=== PATIENT | male | born 1965 | race Hispanic/Latino ===

== ENCOUNTER 2022-03-04 15:43 | Inpatient (IN) | payer MEDICAID ==
[2022-03-05 07:20] LABS: Basophils # (Auto) 0.1 K/mm3 (0.0-0.1); Basophils % (Auto) 0.7 % (0.0-1.8); Eosinophils # (Auto) 0.3 K/mm3 (0.0-0.4); Eosinophils % (Auto) 3.5 % (0.0-4.3); Hematocrit 45.1 % (35.5-45.6); Hemoglobin 14.8 gm/dl (11.8-15.2); Lymphocytes # (Auto) 3.2 K/mm3 (1.2-5.4); Lymphocytes % (Auto) 32.8 % (13.4-35.0); Mean Corpuscular HGB Conc 33 % (32-34); Mean Corpuscular Volume 86 fl (84-94); Monocytes # (Auto) 0.9 K/mm3 (0.0-0.8); Monocytes % (Auto) 9.5 % (0.0-7.3); Platelet Count 283 K/mm3 (140-440); Red Blood Count 5.23 M/mm3 (3.65-5.03); Red Cell Distribution Width 16.7 % (13.2-15.2)
[2022-03-05 07:59] LABS: Alanine Aminotransferase 39 units/L (7-56); Albumin 4.4 g/dL (3.9-5); BUN/Creatinine Ratio 17; Blood Urea Nitrogen 15 mg/dL (9-20); Calcium 9.2 mg/dL (8.4-10.2); Chol/HDL Ratio 3.05 %; HDL Cholesterol 51 mg/dL (40-59); Hemolysis Index 4; LDL Cholesterol,Direct 74 mg/dL (50-130)
--- NOTE | 2022-03-05 09:15 | History and Physical Report ---
GP History & Physical - History of Present Illness Date of admission: 03/05/22 Date of Examination: 03/05/22 Reason for Admission: Danger to self, Danger to others, Failure of Outpatient Treatment Chief Complaint: suicidal ideation History of Present Illness: The patient is a 56 year old male with history of depression and anxiety who was admitted for suicidal ideation. The patient is calm, alert and oriented x3. He reports ongoing depression for the past 3 to 4 months. The patient reports that " I felt like I was going to do something stupid." He reports recent stressor such as " bills." He endorses excessive anxiety. The patient denies any current suicidal/homicidal ideation and denies hallucinations. PAST PSYCHIATRIC HISTORY Diagnoses: Depression, Anxiety Suicide attempts or Self-harm behavior: Yes Prior psychiatric hospitalizations: Yes Substance Abuse history: Denies Previous psychiatric medications tried: Unable to recall Outpatient treatment: Unknown PAST MEDICAL HISTORY:Back/Neck surgery, DM, COPD, CABG Family Psychiatric History: None reported or documented SOCIAL HISTORY Marital Status: Single Living Arrangements: Lives with mother and brother Employment Status: Disabled Access to guns/weapons: Denies Education: 9th grade History of Abuse: Denies Legal History: Denies REVIEW OF SYSTEMS Constitutional: Negative for weight loss ENT: Negative for stridor Respiratory: Negative for cough or hemoptysis All other systems reviewed and are negative MENTAL STATUS EXAMINATION General Appearance and Behavior: Age appropriate, good hygiene, wearing appropriate clothes, fair eye contact, calm, cooperative and polite Cooperation: Cooperative Psychomotor Behavior: Psychomotor normal Mood: Depressed/anxious Affect and affective range: congruent with stated mood Thought Process: Goal directed Thought Content: Reality oriented Speech: normal tone and pace Suicidal Ideation: Denies Homicidal Ideation: Denies Hallucinations: Denies Delusions: None elicited Impulse Control: Limited Insight and Judgment: Limited insight and judgment Memory: Limited Attention: attentive Orientation: Alert, oriented Assessment and Plan Major depressive disorder Treatment Plan Patient admitted for inpatient psychiatric evaluation, medication adjustment and close monitoring The patient's behavior, mood, sleep and appetite will be closely monitored. Patient enrolled in individual and group therapeutic sessions and encouraged to attend. Patient provided with a safe and structured environment. Patient's physical health needs will be addressed by the Hospitalist. Hospitalist Consulted Labs including CBC, CMP, Lipid profile and Hemoglobin A1C levels ordered for baseline reference Social Assessment will be completed and the Diamond Cutter will work with patient and family to ensure a suitable and safe disposition Medication adjustment will be made as clinically indicated Continue home meds Usual Wellness [employer]/Preservation: - Start Trazodone 50 mg po QHS & 50 mg po QHS PRN between 10 PM & 2 AM for insomnia - Start Melatonin 5 mg po QHS to promote circadian rhythm The patient agreed on the treatment plan, understood the risk, benefit, alternative treatment, potential consequence of no treatment, and gave informed consent. Estimated days: 7 Post hospital care: primary care provider, psychiatric provider Case staffed with Dr. Mcbride Legal Status: Voluntary Reaction to Hospitalization: Accepting Medications and Allergies Allergies Allergy/AdvReac Type Severity Reaction Status Date / Time No Known Allergies Allergy Unverified 03/04/22 17:57 Home Medications Medication Instructions Recorded Confirmed Last Taken Type AtorvaSTATin [Lipitor] 40 mg PO QHS 03/05/22 03/05/22 Unknown History Clopidogrel [Plavix] 75 mg PO QDAY 03/05/22 03/05/22 Unknown History Cyclobenzaprine [Flexeril] 10 mg PO HS 03/05/22 03/05/22 Unknown History Furosemide [Lasix] 40 mg PO DAILY 03/05/22 03/05/22 Unknown History Glimepiride [Amaryl] 4 mg PO QAM 03/05/22 03/05/22 Unknown History HYDROcodone/APAP 10-325 [[place] 1 each PO TID 03/05/22 03/05/22 Unknown History 10/325] Metformin HCl [metFORMIN] 1,000 mg PO BID 03/05/22 03/05/22 Unknown History Metoprolol Xl [Metoprolol 25 mg PO QDAY 03/05/22 03/05/22 Unknown History SUCCINATE ER TAB] Omeprazole 40 mg PO DAILY 03/05/22 03/05/22 Unknown History Pregabalin [Lyrica] 100 mg PO DAILY 03/05/22 03/05/22 Unknown History carvediloL [Coreg] 6.25 mg PO BID 03/05/22 03/05/22 Unknown History lisinopriL [Lisinopril] 10 mg PO DAILY 03/05/22 03/05/22 Unknown History traZODone [Desyrel] 50 mg PO HS 03/05/22 03/05/22 Unknown History Active Meds: Active Medications Nicotine (Nicotine 21 Mg/24 Hr Patch) 21 mg TD QDAY [facility] Results - Results Labs/Vitals: Laboratory Last Values WBC 9.8 K/mm3 (4.5-11.0) 03/05/22 06:44 RBC 5.23 M/mm3 (3.65-5.03) H 03/05/22 06:44 Hgb 14.8 gm/dl (11.8-15.2) 03/05/22 06:44 Hct 45.1 % (35.5-45.6) 03/05/22 06:44 MCV 86 fl (84-94) 03/05/22 06:44 MCH 28 pg (28-32) 03/05/22 06:44 MCHC 33 % (32-34) 03/05/22 06:44 RDW 16.7 % (13.2-15.2) H 03/05/22 06:44 Plt Count 283 K/mm3 (140-440) 03/05/22 06:44 Lymph % (Auto) 32.8 % (13.4-35.0) 03/05/22 06:44 [place] % (Auto) 9.5 % (0.0-7.3) H 03/05/22 06:44 Eos % (Auto) 3.5 % (0.0-4.3) 03/05/22 06:44 Baso % (Auto) 0.7 % (0.0-1.8) 03/05/22 06:44 Lymph # (Auto) 3.2 K/mm3 (1.2-5.4) 03/05/22 06:44 [place] # (Auto) 0.9 K/mm3 (0.0-0.8) H 03/05/22 06:44 Eos # (Auto) 0.3 K/mm3 (0.0-0.4) 03/05/22 06:44 Baso # (Auto) 0.1 K/mm3 (0.0-0.1) 03/05/22 06:44 Seg Neutrophils % 53.5 % (40.0-70.0) 03/05/22 06:44 Seg Neutrophils # 5.3 K/mm3 (1.8-7.7) 03/05/22 06:44 Sodium 132 mmol/L (137-145) L 03/05/22 06:44 Potassium 4.4 mmol/L (3.6-5.0) 03/05/22 06:44 Chloride 92.2 mmol/L (98-107) L 03/05/22 06:44 Carbon Dioxide 29 mmol/L (22-30) 03/05/22 06:44 Anion Gap 15 mmol/L 03/05/22 06:44 BUN 15 mg/dL (9-20) 03/05/22 06:44 Creatinine 0.9 mg/dL (0.8-1.3) 03/05/22 06:44 Estimated GFR > 60 ml/min 03/05/22 06:44 BUN/Creatinine Ratio 17 % 03/05/22 06:44 Glucose 274 mg/dL (75-100) H 03/05/22 06:44 POC Glucose 266 mg/dL (70-105) H 03/05/22 07:28 Hemoglobin A1c 8.2 % (4-6) H 03/05/22 06:44 Calcium 9.2 mg/dL (8.4-10.2) 03/05/22 06:44 Total Bilirubin 0.40 mg/dL (0.1-1.2) 03/05/22 06:44 AST 26 units/L (5-40) 03/05/22 06:44 ALT 39 units/L (7-56) 03/05/22 06:44 Alkaline Phosphatase 195 units/L (35-129) H 03/05/22 06:44 Total Protein 7.2 g/dL (6.3-8.2) 03/05/22 06:44 Albumin 4.4 g/dL (3.9-5) 03/05/22 06:44 Albumin/Globulin Ratio 1.6 % 03/05/22 06:44 Triglycerides 327 mg/dL (2-149) H 03/05/22 06:44 Cholesterol 156 mg/dL (50-199) 03/05/22 06:44 LDL Cholesterol Direct 74 mg/dL (50-130) 03/05/22 06:44 HDL Cholesterol 51 mg/dL (40-59) 03/05/22 06:44 Cholesterol/HDL Ratio 3.05 % 03/05/22 06:44 TSH 2.460 mlU/mL (0.270-4.200) 03/05/22 06:44 Physician Certification - Certification Statement Physician Certification Statement: This is an acknowledgement statement that KIMBER CROCKETT is a 56 year old M who requires inpatient psychiatric admission for treatment which could reasonably be expected to improve the patient's condition for Estimated period of time patient will need to remain in the hospital: [ ] Plan for post-hospital care: [ ]
[2022-03-05] MEDS ORDERED: NON-FORMULARY EACH (Pregabalin [Lyrica] 100 MG Capsule) PO SCH (10:00)
[2022-03-05] MEDS ORDERED: METOPROLOL SUCCINATE XL 25 MG TAB PO SCH (10:00)
[2022-03-05] MEDS ORDERED: NON-FORMULARY EACH (Omeprazole [Omeprazole] 40 MG Capsule.Dr) PO SCH (10:00)
[2022-03-05] MEDS ORDERED: clonazePAM 0.5 MG TAB PO PRN (10:00)
[2022-03-05] MEDS: PREGABALIN 50 MG CAP PO SCH (10:36)
[2022-03-05] MEDS: FUROSEMIDE 40 MG TAB PO SCH (10:36)
[2022-03-05] MEDS: PANTOPRAZOLE 40 MG TAB PO SCH (10:36)
[2022-03-05] MEDS: DULoxetine 30 MG CAP PO SCH (10:36)
[2022-03-05] MEDS: NICOTINE 21 MG/24 HR PATCH TD SCH (10:36)
[2022-03-05] MEDS: FLUoxetine 20 MG CAP PO SCH (10:36)
[2022-03-05] MEDS: CLOPIDOGREL 75 MG TAB PO SCH (10:36)
[2022-03-05] MEDS: carvediloL 6.25 MG TAB PO SCH ×2 (10:36→21:37)
[2022-03-05] MEDS: GLIMEPIRIDE 4 MG TAB PO SCH (10:53)
[2022-03-05] MEDS ORDERED: hydrOXYzine PAMOATE 25 MG CAP PO PRN (13:30)
--- NOTE | 2022-03-05 16:11 | Consultation ---
History of Present Illness - Reason for Consult Consult date: 03/05/22 Medical management - History of Present Illness Patient is a 56-year-old male past medical history of depression, anxiety, CAD status post CABG, [id number] type 2 diabetes mellitus, GERD, hypertension, and diabetic neuropathy who was admitted for suicidal ideation. The patient describes having ongoing depression for approximately 3-4 months with recent stressors such as "bills" and financial difficulties. Patient denies any current suicidal/homicidal ideation as well as hallucinations. The hospitalist service was consulted for medical management. Past History Past Medical History: CAD (Status post CABG), COPD, diabetes, hypertension, hyperlipidemia, other (#Tobacco dependence#Tobacco/Smoking cessation counseling- Counseled patient about the importance of smoking cessation and the possible sequelae as a result of continued tobacco consumption. The patient expresses understanding. -Time: +15 mins) Past Surgical History: CABG Social history: single, lives with family, smoking, full code Family history: no significant family history Medications and Allergies Allergies Allergy/AdvReac Type Severity Reaction Status Date / Time No Known Allergies Allergy Unverified 03/04/22 17:57 Home Medications Medication Instructions Recorded Confirmed Last Taken Type AtorvaSTATin [Lipitor] 40 mg PO QHS 03/05/22 03/05/22 Unknown History Clopidogrel [Plavix] 75 mg PO QDAY 03/05/22 03/05/22 Unknown History Cyclobenzaprine [Flexeril] 10 mg PO HS 03/05/22 03/05/22 Unknown History Furosemide [Lasix] 40 mg PO DAILY 03/05/22 03/05/22 Unknown History Glimepiride [Amaryl] 4 mg PO QAM 03/05/22 03/05/22 Unknown History HYDROcodone/APAP 10-325 [[place] 1 each PO TID 03/05/22 03/05/22 Unknown History 10/325] Metformin HCl [metFORMIN] 1,000 mg PO BID 03/05/22 03/05/22 Unknown History Metoprolol Xl [Metoprolol 25 mg PO QDAY 03/05/22 03/05/22 Unknown History SUCCINATE ER TAB] Omeprazole 40 mg PO DAILY 03/05/22 03/05/22 Unknown History Pregabalin [Lyrica] 100 mg PO DAILY 03/05/22 03/05/22 Unknown History carvediloL [Coreg] 6.25 mg PO BID 03/05/22 03/05/22 Unknown History lisinopriL [Lisinopril] 10 mg PO DAILY 03/05/22 03/05/22 Unknown History traZODone [Desyrel] 50 mg PO HS 03/05/22 03/05/22 Unknown History Active Meds: Active Medications Atorvastatin Calcium (Atorvastatin 40 Mg Tab) 40 mg PO QHS [facility] Carvedilol (Carvedilol 6.25 Mg Tab) 6.25 mg PO BID [facility] Last Admin: 03/05/22 10:36 Dose: 6.25 mg Clonazepam (Clonazepam 0.5 Mg Tab) 0.5 mg PO BID PRN PRN Reason: Anxiety Clopidogrel Bisulfate (Clopidogrel 75 Mg Tab) 75 mg PO QDAY [facility] Last Admin: 03/05/22 10:36 Dose: 75 mg Cyclobenzaprine HCl (Cyclobenzaprine 10 Mg Tab) 10 mg PO [facility] Duloxetine HCl (Duloxetine 30 Mg Cap) 60 mg PO QDAY [facility] Last Admin: 03/05/22 10:36 Dose: 60 mg Fluoxetine HCl (Fluoxetine 20 Mg Cap) 40 mg PO QDAY [facility] Last Admin: 03/05/22 10:36 Dose: 40 mg Furosemide (Furosemide 40 Mg Tab) 40 mg PO DAILY [facility] Last Admin: 03/05/22 10:36 Dose: 40 mg Glimepiride (Glimepiride 4 Mg Tab) 4 mg PO QAMDIAB [facility] Last Admin: 03/05/22 10:53 Dose: 4 mg Hydroxyzine Pamoate (Hydroxyzine Pamoate 25 Mg Cap) 25 mg PO Q6H PRN PRN Reason: Anxiety Metoprolol Succinate (Metoprolol Succinate Xl 25 Mg Tab) 25 mg PO QDAY [facility] Nicotine (Nicotine 21 Mg/24 Hr Patch) 21 mg TD QDAY [facility] Last Admin: 03/05/22 10:36 Dose: 21 mg Pantoprazole Sodium (Pantoprazole 40 Mg Tab) 40 mg PO QDAC [facility] Last Admin: 03/05/22 10:36 Dose: 40 mg Pregabalin (Pregabalin 50 Mg Cap) 100 mg PO QDAY [facility] Last Admin: 03/05/22 10:36 Dose: 100 mg Trazodone HCl (Trazodone 50 Mg Tab) 50 mg PO [facility] Review of Systems All systems: negative Exam - Constitutional Vitals: Temp Pulse Resp BP Pulse Ox 97.4 F L 90 18 139/80 96 03/05/22 08:40 03/05/22 10:36 03/05/22 08:40 03/05/22 10:36 03/05/22 08:40 General appearance: Present: no acute distress, well-nourished, obese - EENT Eyes: Present: PERRL, EOM intact ENT: hearing intact, clear oral mucosa - Neck Neck: Present: supple, normal ROM - Respiratory Respiratory effort: normal Respiratory: bilateral: CTA - Cardiovascular Rhythm: regular Heart Sounds: Present: S1 & S2 - Extremities Extremities: no ischemia, pulses intact, pulses symmetrical, No edema, normal temperature, normal color Peripheral Pulses: within normal limits - Abdominal General gastrointestinal: Present: soft, non-tender, non-distended, normal bowel sounds Male genitourinary: Present: deferred - Rectal Rectal Exam: deferred - Integumentary Integumentary: Present: clear, warm, dry - Musculoskeletal Musculoskeletal: strength equal bilaterally - Psychiatric Psychiatric: appropriate mood/affect, cooperative, depressed - Neurologic Neurologic: CNII-XII intact - Allied Health Allied health notes reviewed: nursing Results - Labs CBC & Chem 7: 03/05/22 06:44 03/05/22 06:44 Labs: Abnormal lab results 03/05/22 03/05/22 03/05/22 Range/Units 06:44 06:44 06:44 RBC 5.23 H (3.65-5.03) M/mm3 RDW 16.7 H (13.2-15.2) % [place] % (Auto) 9.5 H (0.0-7.3) % [place] # (Auto) 0.9 H (0.0-0.8) K/mm3 Sodium 132 L (137-145) mmol/L Chloride 92.2 L (98-107) mmol/L Glucose 274 H (75-100) mg/dL POC Glucose (70-105) mg/dL Hemoglobin A1c 8.2 H (4-6) % Alkaline Phosphatase 195 H (35-129) units/L Triglycerides 327 H (2-149) mg/dL 03/05/22 03/05/22 Range/Units 07:28 11:08 RBC (3.65-5.03) M/mm3 RDW (13.2-15.2) % [place] % (Auto) (0.0-7.3) % [place] # (Auto) (0.0-0.8) K/mm3 Sodium (137-145) mmol/L Chloride (98-107) mmol/L Glucose (75-100) mg/dL POC Glucose 266 H 270 H (70-105) mg/dL Hemoglobin A1c (4-6) % Alkaline Phosphatase (35-129) units/L Triglycerides (2-149) mg/dL Assessment and Plan #Depression #Anxiety Management per primary #Hyponatremia Sodium 132 Continue to monitor #Elevated transaminases Alkaline phosphatase 195 Continue to monitor #CAD status post CABG #Hyperlipidemia #Hypertension - home medications: Lipitor 40 mg daily, Plavix 75 mg daily, Lasix 40 mg daily, metoprolol succinate 25 mg daily, Coreg 6.25 mg twice daily, lisinopril 10 mg daily - current medications: Lipitor 40 mg daily, Plavix 75 mg daily, Lasix 40 mg daily, metoprolol succinate 25 mg daily, Coreg 6.25 mg twice daily, lisinopril 10 mg daily - SBP goal <160 and DBP goal <90 while inpatient - continue to monitor #Non-insulin dependent type II diabetes mellitus #[id number] type 2 diabetes mellitus complicated by diabetic neuropathy - hemoglobin A1c: 8.2 - home regimen: Glimepiride 4 mg every morning and metformin 1000 mg twice daily and pregabalin 100 mg daily - current regimen: Glimepiride 4 mg every morning and metformin 1000 mg twice daily and pregabalin 100 mg daily - blood glucose goal 140-180 while inpatient - continue to monitor with hypoglycemia #COPDstable Continue DuoNebs and albuterol nebs as needed #Tobacco dependence #Tobacco/Smoking cessation counseling - Counseled patient about the importance of smoking cessation and the possible sequelae as a result of continued tobacco consumption. The patient expresses understanding. Continue nicotine patch 21 mg daily -Time: +15 mins #Morbid obesity #Weight loss counseling #Exercise counseling - BMI 51.7 - Counseled patient on the importance of weight loss, incorporating exercise, and dietary changes (lean meats, fresh fruits and vegetables, and water intake). Patient expresses understanding. - Time: +15 min #Advanced care planning -Disease education conducted, care plan discussed, diagnoses discussed, prognosis discussed, and patient acknowledges understanding with care plan -Time: +30 min Thank you for this interesting consult. We will continue to monitor.
[2022-03-05] MEDS: traZODone 50 MG TAB PO SCH (21:38)
[2022-03-05] MEDS: CYCLOBENZAPRINE 10 MG TAB PO SCH (21:38)
[2022-03-06 07:01] LABS: Alanine Aminotransferase 36 units/L (7-56); Albumin 4.1 g/dL (3.9-5); BUN/Creatinine Ratio 24; Blood Urea Nitrogen 24 mg/dL (9-20); Calcium 9.2 mg/dL (8.4-10.2); Hemolysis Index 3
--- NOTE | 2022-03-06 09:52 | Progress Note ---
Subjective Date of service: 03/06/22 Subjective Comment: 03/06: The patient was seen this morning. He reports feeling better. Continues to endorse depression rating as 8/10. No hallucinations. REVIEW OF SYSTEMS Constitutional: Negative for weight loss ENT: Negative for stridor Respiratory: Negative for cough or hemoptysis All other systems reviewed and are negative MENTAL STATUS EXAMINATION General Appearance and Behavior: Age appropriate, good hygiene, wearing appropriate clothes, fair eye contact, calm, cooperative and polite Cooperation: Cooperative Psychomotor Behavior: Psychomotor normal Mood: Depressed Affect and affective range: congruent with stated mood Thought Process: Goal directed Thought Content: Reality oriented Speech: normal tone and pace Suicidal Ideation: Denies Homicidal Ideation: Denies Hallucinations: Denies Delusions: None elicited Impulse Control: Limited Insight and Judgment: Limited insight and judgment Memory: Limited Attention: attentive Orientation: Alert, oriented Assessment and Plan Major depressive disorder Treatment Plan Patient admitted for inpatient psychiatric evaluation, medication adjustment and close monitoring The patient's behavior, mood, sleep and appetite will be closely monitored. Patient enrolled in individual and group therapeutic sessions and encouraged to attend. Patient provided with a safe and structured environment. Patient's physical health needs will be addressed by the Hospitalist. Hospitalist Consulted Labs including CBC, CMP, Lipid profile and Hemoglobin A1C levels ordered for baseline reference Social Assessment will be completed and the Concert Pianist will work with patient and family to ensure a suitable and safe disposition Medication adjustment will be made as clinically indicated Continue home meds Usual Wellness [employer]/Preservation: - Start Trazodone 50 mg po QHS & 50 mg po QHS PRN between 10 PM & 2 AM for insomnia - Start Melatonin 5 mg po QHS to promote circadian rhythm The patient agreed on the treatment plan, understood the risk, benefit, alternative treatment, potential consequence of no treatment, and gave informed consent. Estimated days: 6 Post hospital care: primary care provider, psychiatric provider Case staffed with Dr. Mcbride Legal Status: Voluntary Reaction to Hospitalization: Accepting Medications and Allergies Medications and Allergies Allergies Allergy/AdvReac Type Severity Reaction Status Date / Time No Known Allergies Allergy Unverified 03/04/22 17:57 Home Medications Medication Instructions Recorded Confirmed Last Taken Type AtorvaSTATin [Lipitor] 40 mg PO QHS 03/05/22 03/05/22 Unknown History Clopidogrel [Plavix] 75 mg PO QDAY 03/05/22 03/05/22 Unknown History Cyclobenzaprine [Flexeril] 10 mg PO HS 03/05/22 03/05/22 Unknown History Furosemide [Lasix] 40 mg PO DAILY 03/05/22 03/05/22 Unknown History Glimepiride [Amaryl] 4 mg PO QAM 03/05/22 03/05/22 Unknown History HYDROcodone/APAP 10-325 [[place] 1 each PO TID 03/05/22 03/05/22 Unknown History 10/325] Metformin HCl [metFORMIN] 1,000 mg PO BID 03/05/22 03/05/22 Unknown History Metoprolol Xl [Metoprolol 25 mg PO QDAY 03/05/22 03/05/22 Unknown History SUCCINATE ER TAB] Omeprazole 40 mg PO DAILY 03/05/22 03/05/22 Unknown History Pregabalin [Lyrica] 100 mg PO DAILY 03/05/22 03/05/22 Unknown History carvediloL [Coreg] 6.25 mg PO BID 03/05/22 03/05/22 Unknown History lisinopriL [Lisinopril] 10 mg PO DAILY 03/05/22 03/05/22 Unknown History traZODone [Desyrel] 50 mg PO HS 03/05/22 03/05/22 Unknown History Active Meds: Active Medications Atorvastatin Calcium (Atorvastatin 40 Mg Tab) 40 mg PO QHS [facility] Last Admin: 03/05/22 21:38 Dose: 40 mg Carvedilol (Carvedilol 6.25 Mg Tab) 6.25 mg PO BID [facility] Last Admin: 03/05/22 21:37 Dose: 6.25 mg Clonazepam (Clonazepam 0.5 Mg Tab) 0.5 mg PO BID PRN PRN Reason: Anxiety Clopidogrel Bisulfate (Clopidogrel 75 Mg Tab) 75 mg PO QDAY [facility] Last Admin: 03/05/22 10:36 Dose: 75 mg Cyclobenzaprine HCl (Cyclobenzaprine 10 Mg Tab) 10 mg PO [facility] Last Admin: 03/05/22 21:38 Dose: 10 mg Dextrose (Dextrose 50% In Water (25gm) 50 Ml Syringe) 50 ml IV Q30MIN PRN; Protocol PRN Reason: Hypoglycemia Duloxetine HCl (Duloxetine 30 Mg Cap) 60 mg PO QDAY [facility] Last Admin: 03/05/22 10:36 Dose: 60 mg Fluoxetine HCl (Fluoxetine 20 Mg Cap) 40 mg PO QDAY [facility] Last Admin: 03/05/22 10:36 Dose: 40 mg Furosemide (Furosemide 40 Mg Tab) 40 mg PO DAILY [facility] Last Admin: 03/05/22 10:36 Dose: 40 mg Glimepiride (Glimepiride 4 Mg Tab) 4 mg PO QAMDIAB [facility] Last Admin: 03/05/22 10:53 Dose: 4 mg Hydroxyzine Pamoate (Hydroxyzine Pamoate 25 Mg Cap) 25 mg PO Q6H PRN PRN Reason: Anxiety Metformin HCl (Metformin 500 Mg Tab) 1,000 mg PO BIDDIAB [facility] Nicotine (Nicotine 21 Mg/24 Hr Patch) 21 mg TD QDAY [facility] Last Admin: 03/05/22 10:36 Dose: 21 mg Pantoprazole Sodium (Pantoprazole 40 Mg Tab) 40 mg PO QDAC [facility] Last Admin: 03/05/22 10:36 Dose: 40 mg Pregabalin (Pregabalin 50 Mg Cap) 100 mg PO QDAY [facility] Last Admin: 03/05/22 10:36 Dose: 100 mg Trazodone HCl (Trazodone 50 Mg Tab) 50 mg PO HS [facility] Last Admin: 03/05/22 21:38 Dose: 50 mg Results - Results Labs/Vitals: Laboratory Last Values WBC 9.8 K/mm3 (4.5-11.0) 03/05/22 06:44 RBC 5.23 M/mm3 (3.65-5.03) H 03/05/22 06:44 Hgb 14.8 gm/dl (11.8-15.2) 03/05/22 06:44 Hct 45.1 % (35.5-45.6) 03/05/22 06:44 MCV 86 fl (84-94) 03/05/22 06:44 MCH 28 pg (28-32) 03/05/22 06:44 MCHC 33 % (32-34) 03/05/22 06:44 RDW 16.7 % (13.2-15.2) H 03/05/22 06:44 Plt Count 283 K/mm3 (140-440) 03/05/22 06:44 Lymph % (Auto) 32.8 % (13.4-35.0) 03/05/22 06:44 [place] % (Auto) 9.5 % (0.0-7.3) H 03/05/22 06:44 Eos % (Auto) 3.5 % (0.0-4.3) 03/05/22 06:44 Baso % (Auto) 0.7 % (0.0-1.8) 03/05/22 06:44 Lymph # (Auto) 3.2 K/mm3 (1.2-5.4) 03/05/22 06:44 [place] # (Auto) 0.9 K/mm3 (0.0-0.8) H 03/05/22 06:44 Eos # (Auto) 0.3 K/mm3 (0.0-0.4) 03/05/22 06:44 Baso # (Auto) 0.1 K/mm3 (0.0-0.1) 03/05/22 06:44 Seg Neutrophils % 53.5 % (40.0-70.0) 03/05/22 06:44 Seg Neutrophils # 5.3 K/mm3 (1.8-7.7) 03/05/22 06:44 Sodium 136 mmol/L (137-145) L 03/06/22 06:08 Potassium 4.2 mmol/L (3.6-5.0) 03/06/22 06:08 Chloride 100.1 mmol/L (98-107) 03/06/22 06:08 Carbon Dioxide 25 mmol/L (22-30) 03/06/22 06:08 Anion Gap 15 mmol/L 03/06/22 06:08 BUN 24 mg/dL (9-20) H 03/06/22 06:08 Creatinine 1.0 mg/dL (0.8-1.3) 03/06/22 06:08 Estimated GFR > 60 ml/min 03/06/22 06:08 BUN/Creatinine Ratio 24 % 03/06/22 06:08 Glucose 254 mg/dL (75-100) H 03/06/22 06:08 POC Glucose 274 mg/dL (70-105) H 03/06/22 06:21 Hemoglobin A1c 8.2 % (4-6) H 03/05/22 06:44 Calcium 9.2 mg/dL (8.4-10.2) 03/06/22 06:08 Total Bilirubin 0.30 mg/dL (0.1-1.2) 03/06/22 06:08 AST 19 units/L (5-40) 03/06/22 06:08 ALT 36 units/L (7-56) 03/06/22 06:08 Alkaline Phosphatase 163 units/L (35-129) H 03/06/22 06:08 Total Protein 6.5 g/dL (6.3-8.2) 03/06/22 06:08 Albumin 4.1 g/dL (3.9-5) 03/06/22 06:08 Albumin/Globulin Ratio 1.7 % 03/06/22 06:08 Triglycerides 327 mg/dL (2-149) H 03/05/22 06:44 Cholesterol 156 mg/dL (50-199) 03/05/22 06:44 LDL Cholesterol Direct 74 mg/dL (50-130) 03/05/22 06:44 HDL Cholesterol 51 mg/dL (40-59) 03/05/22 06:44 Cholesterol/HDL Ratio 3.05 % 03/05/22 06:44 TSH 2.460 mlU/mL (0.270-4.200) 03/05/22 06:44 Last Vital Signs Temp 98.3 F 03/05/22 19:55 Pulse 106 H 03/05/22 21:37 Resp 16 03/05/22 19:55 BP 119/76 03/05/22 21:37 Pulse Ox 99 03/05/22 19:55
[2022-03-06] MEDS ORDERED: DEXTROSE 50% IN WATER (25GM) 50 ML SYRINGE IV PRN (10:00)
[2022-03-06] MEDS: carvediloL 6.25 MG TAB PO SCH ×2 (10:14→21:28)
[2022-03-06] MEDS: CLOPIDOGREL 75 MG TAB PO SCH (10:14)
[2022-03-06] MEDS: PREGABALIN 50 MG CAP PO SCH (10:14)
[2022-03-06] MEDS: PANTOPRAZOLE 40 MG TAB PO SCH (10:14)
[2022-03-06] MEDS: NICOTINE 21 MG/24 HR PATCH TD SCH (10:14)
[2022-03-06] MEDS: GLIMEPIRIDE 4 MG TAB PO SCH (10:14)
[2022-03-06] MEDS: FUROSEMIDE 40 MG TAB PO SCH (10:14)
[2022-03-06] MEDS: DULoxetine 30 MG CAP PO SCH (10:14)
[2022-03-06] MEDS: FLUoxetine 20 MG CAP PO SCH (10:14)
[2022-03-06] MEDS: metFORMIN 500 MG TAB PO SCH ×2 (12:03→16:39)
[2022-03-06] MEDS ORDERED: ACETAMINOPHEN 325 MG TAB PO PRN (16:27)
[2022-03-06] MEDS: INSULIN LISPRO 100 UNIT/ML SUB-Q SCH ×2 (16:39→21:37)
--- NOTE | 2022-03-06 16:59 | Progress Note ---
Assessment and Plan Assessment and plan: Patient is a 56-year-old male past medical history of depression, anxiety, CAD status post CABG, [id number] type 2 diabetes mellitus, GERD, hypertension, and diabetic neuropathy who was admitted for suicidal ideation. The patient describes having ongoing depression for approximately 3-4 months with recent stressors such as "bills" and financial difficulties. Patient denies any current suicidal/homicidal ideation as well as hallucinations. The hospitalist service was consulted for medical management. Past History Past Medical History: CAD (Status post CABG), COPD, diabetes, hypertension, hyperlipidemia, other (#Tobacco dependence#Tobacco/Smoking cessation counseling- Counseled patient about the importance of smoking cessation and the possible sequelae as a result of continued tobacco consumption. The patient expresses understanding. -Time: +15 mins) Past Surgical History: CABG Social history: single, lives with family, smoking, full code Family history: no significant family history #Depression #Anxiety Management per primary #Hyponatremia Sodium 132 Continue to monitor #Elevated transaminases Alkaline phosphatase 195 Continue to monitor #CAD status post CABG #Hyperlipidemia #Hypertension - home medications: Lipitor 40 mg daily, Plavix 75 mg daily, Lasix 40 mg daily, metoprolol succinate 25 mg daily, Coreg 6.25 mg twice daily, lisinopril 10 mg daily - current medications: Lipitor 40 mg daily, Plavix 75 mg daily, Lasix 40 mg daily, metoprolol succinate 25 mg daily, Coreg 6.25 mg twice daily, lisinopril 10 mg daily - SBP goal <160 and DBP goal <90 while inpatient - continue to monitor #Non-insulin dependent type II diabetes mellitus #[id number] type 2 diabetes mellitus complicated by diabetic neuropathy - hemoglobin A1c: 8.2 - home regimen: Glimepiride 4 mg every morning and metformin 1000 mg twice daily and pregabalin 100 mg daily - current regimen: Glimepiride 4 mg every morning and metformin 1000 mg twice daily and pregabalin 100 mg daily - blood glucose goal 140-180 while inpatient I adjusted his sliding scale to moderate dose. For better control of his blood sugars trending 200s to 280 level - continue to monitor with hypoglycemia #COPDstable Continue DuoNebs and albuterol nebs as needed #Tobacco dependence #Tobacco/Smoking cessation counseling - Counseled patient about the importance of smoking cessation and the possible sequelae as a result of continued tobacco consumption. The patient expresses understanding. Continue nicotine patch 21 mg daily -Time: +15 mins #Morbid obesity #Weight loss counseling #Exercise counseling - BMI 51.7 - Counseled patient on the importance of weight loss, incorporating exercise, and dietary changes (lean meats, fresh fruits and vegetables, and water intake). Patient expresses understanding. - Time: +15 min #Chronic back pain -We will request to get records from his outpatient primary care physician and pain doctor. -Review of his also record shows that he did feel hydrocodone a few months ago. We will place him on a low-dose Percocet. This #advanced care planning -Disease education conducted, care plan discussed, diagnoses discussed, prognosis discussed, and patient acknowledges understanding with care plan -Time: +30 min Thank you for this interesting consult. We will continue to monitor. History Interval history: Patient seen and examined no new complaints except chronic back pain states that he takes Lyrica, Flexeril, and hydrocodone outpatient been ordered by Dr. Jones and has not been started here. Pain he rates of 5/10 in intensity and chronic. Denies any paresthesias to lower extremity. Hospitalist Physical - Physical exam Narrative exam: VITAL SIGNS: Reviewed. GENERAL: The patient appears normally developed, Vital signs as documented. HEAD: No signs of head trauma. EYES: Pupils are equal. Extraocular motions intact. EARS: Hearing grossly intact. MOUTH: Oropharynx is normal. NECK: No adenopathy, no JVD. CHEST: Chest with clear breath sounds bilaterally. No wheezes, rales, or rhonchi. CARDIAC: Regular rate and rhythm. S1 and S2, without murmurs, gallops, or rubs. VASCULAR: No Edema. Peripheral pulses normal and equal in all extremities. ABDOMEN: Soft, non tender and non distended. No rebound or guarding, and no masses palpated. Bowel Sounds normal. MUSCULOSKELETAL: Good range of motion of all major joints. Extremities without clubbing, cyanosis or edema. NEUROLOGIC EXAM: Alert and oriented x 3 No focal sensory or strength deficits. Speech normal. Follows commands. PSYCHIATRIC: Mood depressed SKIN: detail exam as documented in skin assessment - Constitutional Vitals: Temp Pulse Resp BP Pulse Ox 98.5 F 71 16 142/77 93 03/06/22 09:45 03/06/22 09:45 03/06/22 09:45 03/06/22 09:45 03/06/22 09:45 General appearance: Present: no acute distress, well-nourished, obese Results - Labs CBC & Chem 7: 03/05/22 06:44 03/06/22 06:08 Labs: Laboratory Last Values WBC 9.8 K/mm3 (4.5-11.0) 03/05/22 06:44 RBC 5.23 M/mm3 (3.65-5.03) H 03/05/22 06:44 Hgb 14.8 gm/dl (11.8-15.2) 03/05/22 06:44 Hct 45.1 % (35.5-45.6) 03/05/22 06:44 MCV 86 fl (84-94) 03/05/22 06:44 MCH 28 pg (28-32) 03/05/22 06:44 MCHC 33 % (32-34) 03/05/22 06:44 RDW 16.7 % (13.2-15.2) H 03/05/22 06:44 Plt Count 283 K/mm3 (140-440) 03/05/22 06:44 Lymph % (Auto) 32.8 % (13.4-35.0) 03/05/22 06:44 [place] % (Auto) 9.5 % (0.0-7.3) H 03/05/22 06:44 Eos % (Auto) 3.5 % (0.0-4.3) 03/05/22 06:44 Baso % (Auto) 0.7 % (0.0-1.8) 03/05/22 06:44 Lymph # (Auto) 3.2 K/mm3 (1.2-5.4) 03/05/22 06:44 [place] # (Auto) 0.9 K/mm3 (0.0-0.8) H 03/05/22 06:44 Eos # (Auto) 0.3 K/mm3 (0.0-0.4) 03/05/22 06:44 Baso # (Auto) 0.1 K/mm3 (0.0-0.1) 03/05/22 06:44 Seg Neutrophils % 53.5 % (40.0-70.0) 03/05/22 06:44 Seg Neutrophils # 5.3 K/mm3 (1.8-7.7) 03/05/22 06:44 Sodium 136 mmol/L (137-145) L 03/06/22 06:08 Potassium 4.2 mmol/L (3.6-5.0) 03/06/22 06:08 Chloride 100.1 mmol/L (98-107) 03/06/22 06:08 Carbon Dioxide 25 mmol/L (22-30) 03/06/22 06:08 Anion Gap 15 mmol/L 03/06/22 06:08 BUN 24 mg/dL (9-20) H 03/06/22 06:08 Creatinine 1.0 mg/dL (0.8-1.3) 03/06/22 06:08 Estimated GFR > 60 ml/min 03/06/22 06:08 BUN/Creatinine Ratio 24 % 03/06/22 06:08 Glucose 254 mg/dL (75-100) H 03/06/22 06:08 POC Glucose 202 mg/dL (70-105) H 03/06/22 16:22 Hemoglobin A1c 8.2 % (4-6) H 03/05/22 06:44 Calcium 9.2 mg/dL (8.4-10.2) 03/06/22 06:08 Total Bilirubin 0.30 mg/dL (0.1-1.2) 03/06/22 06:08 AST 19 units/L (5-40) 03/06/22 06:08 ALT 36 units/L (7-56) 03/06/22 06:08 Alkaline Phosphatase 163 units/L (35-129) H 03/06/22 06:08 Total Protein 6.5 g/dL (6.3-8.2) 03/06/22 06:08 Albumin 4.1 g/dL (3.9-5) 03/06/22 06:08 Albumin/Globulin Ratio 1.7 % 03/06/22 06:08 Triglycerides 327 mg/dL (2-149) H 03/05/22 06:44 Cholesterol 156 mg/dL (50-199) 03/05/22 06:44 LDL Cholesterol Direct 74 mg/dL (50-130) 03/05/22 06:44 HDL Cholesterol 51 mg/dL (40-59) 03/05/22 06:44 Cholesterol/HDL Ratio 3.05 % 03/05/22 06:44 TSH 2.460 mlU/mL (0.270-4.200) 03/05/22 06:44 [place]/IV: Voiding Method Toilet Active Medications - Current Medications Current Medications: Generic Name Dose Route Start Last Admin Trade Name Freq PRN Reason Stop Dose Admin Acetaminophen 650 mg 03/06/22 16:27 03/06/22 16:38 Acetaminophen 325 Mg Tab PO 650 mg Q4H PRN Administration Pain, Mild (1-3) Atorvastatin Calcium 40 mg 03/05/22 22:00 03/05/22 21:38 Atorvastatin 40 Mg Tab PO 40 mg QHS MAULIK Administration Carvedilol 6.25 mg 03/05/22 10:00 03/06/22 10:14 Carvedilol 6.25 Mg Tab PO 6.25 mg BID MAULIK Administration Clonazepam 0.5 mg 03/05/22 10:00 Clonazepam 0.5 Mg Tab PO BID PRN Anxiety Clopidogrel Bisulfate 75 mg 03/05/22 10:00 03/06/22 10:14 Clopidogrel 75 Mg Tab PO 75 mg QDAY MAULIK Administration Cyclobenzaprine HCl 10 mg 03/05/22 22:00 03/05/22 21:38 Cyclobenzaprine 10 Mg Tab PO 10 mg HS MAULIK Administration Dextrose 50 ml 03/06/22 10:00 Dextrose 50% In Water (25gm) 50 Ml Syringe IV Q30MIN PRN Hypoglycemia Protocol Duloxetine HCl 60 mg 03/05/22 10:00 03/06/22 10:14 Duloxetine 30 Mg Cap PO 60 mg QDAY MAULIK Administration Fluoxetine HCl 40 mg 03/05/22 10:00 03/06/22 10:14 Fluoxetine 20 Mg Cap PO 40 mg QDAY MAULIK Administration Furosemide 40 mg 03/05/22 10:00 03/06/22 10:14 Furosemide 40 Mg Tab PO 40 mg DAILY MAULIK Administration Glimepiride 4 mg 03/05/22 10:00 03/06/22 10:14 Glimepiride 4 Mg Tab PO 4 mg QAMDIAB MAULIK Administration Hydroxyzine Pamoate 25 mg 03/05/22 13:30 Hydroxyzine Pamoate 25 Mg Cap PO Q6H PRN Anxiety Insulin Human Lispro 0 unit 03/06/22 16:30 03/06/22 16:39 Insulin Lispro 100 Unit/Ml SUB-Q 2 unit ACHS MAULIK Administration Protocol Metformin HCl 1,000 mg 03/06/22 11:00 03/06/22 16:39 Metformin 500 Mg Tab PO 1,000 mg BIDDIAB MAULIK Administration Nicotine 21 mg 03/05/22 10:00 03/06/22 10:14 Nicotine 21 Mg/24 Hr Patch TD 21 mg QDAY MAULIK Administration Pantoprazole Sodium 40 mg 03/05/22 11:00 03/06/22 10:14 Pantoprazole 40 Mg Tab PO 40 mg QDAC MAULIK Administration Pregabalin 100 mg 03/05/22 10:00 03/06/22 10:14 Pregabalin 50 Mg Cap PO 100 mg QDAY MAULIK Administration Trazodone HCl 50 mg 03/05/22 22:00 03/05/22 21:38 Trazodone 50 Mg Tab PO 50 mg HS MAULIK Administration
[2022-03-06] MEDS: traZODone 50 MG TAB PO SCH (21:28)
[2022-03-06] MEDS: CYCLOBENZAPRINE 10 MG TAB PO SCH (21:29)
[2022-03-07] MEDS: INSULIN LISPRO 100 UNIT/ML SUB-Q SCH ×4 (09:31→22:26)
[2022-03-07] MEDS: GLIMEPIRIDE 4 MG TAB PO SCH (09:33)
[2022-03-07] MEDS: oxyCODONE /ACETAMINOPHEN 5-325MG TAB PO PRN ×2 (09:34→23:13)
[2022-03-07] MEDS: carvediloL 6.25 MG TAB PO SCH ×2 (09:34→21:44)
[2022-03-07] MEDS: metFORMIN 500 MG TAB PO SCH ×2 (09:34→16:40)
[2022-03-07] MEDS: PREGABALIN 50 MG CAP PO SCH (09:35)
[2022-03-07] MEDS: DULoxetine 30 MG CAP PO SCH (09:35)
[2022-03-07] MEDS: FLUoxetine 20 MG CAP PO SCH (09:35)
[2022-03-07] MEDS: NICOTINE 21 MG/24 HR PATCH TD SCH (09:35)
[2022-03-07] MEDS: CLOPIDOGREL 75 MG TAB PO SCH (09:36)
[2022-03-07] MEDS: FUROSEMIDE 40 MG TAB PO SCH (09:36)
[2022-03-07] MEDS: PANTOPRAZOLE 40 MG TAB PO SCH (09:36)
--- NOTE | 2022-03-07 10:05 | Progress Note ---
Subjective Date of service: 03/07/22 Subjective Comment: The patient was seen today. He says he's tired. He says he's been stressed and depressed about his bills piling up. The patient says "but I'm starting to feel better." The patient denies SI/HI, but then states, "thought about doing something stupid." He then says "but that was before." 03/06: The patient was seen this morning. He reports feeling better. Continues to endorse depression rating as 8/10. No hallucinations. REVIEW OF SYSTEMS Constitutional: Negative for weight loss ENT: Negative for stridor Respiratory: Negative for cough or hemoptysis All other systems reviewed and are negative MENTAL STATUS EXAMINATION General Appearance and Behavior: Age appropriate, good hygiene, wearing appropriate clothes, fair eye contact, calm, cooperative and polite Cooperation: Cooperative Psychomotor Behavior: Psychomotor normal Mood: Depressed Affect and affective range: congruent with stated mood Thought Process: Goal directed Thought Content: Reality oriented Speech: normal tone and pace Suicidal Ideation: Denies Homicidal Ideation: Denies Hallucinations: Denies Delusions: None elicited Impulse Control: Limited Insight and Judgment: Limited insight and judgment Memory: Limited Attention: attentive Orientation: Alert, oriented Assessment and Plan Major depressive disorder Treatment Plan Patient admitted for inpatient psychiatric evaluation, medication adjustment and close monitoring The patient's behavior, mood, sleep and appetite will be closely monitored. Patient enrolled in individual and group therapeutic sessions and encouraged to attend. Patient provided with a safe and structured environment. Patient's physical health needs will be addressed by the Hospitalist. Hospitalist Consulted Labs including CBC, CMP, Lipid profile and Hemoglobin A1C levels ordered for baseline reference Social Assessment will be completed and the Husker Operator will work with patient and family to ensure a suitable and safe disposition Medication adjustment will be made as clinically indicated Continue meds Usual Wellness Jain/Preservation: - Start Trazodone 50 mg po QHS & 50 mg po QHS PRN between 10 PM & 2 AM for insomnia - Start Melatonin 5 mg po QHS to promote circadian rhythm The patient agreed on the treatment plan, understood the risk, benefit, alternative treatment, potential consequence of no treatment, and gave informed consent. Estimated days: 6 Post hospital care: primary care provider, psychiatric provider Case staffed with Dr. Mcbride Medications and Allergies Allergies Allergy/AdvReac Type Severity Reaction Status Date / Time No Known Allergies Allergy Unverified 03/04/22 17:57 Home Medications Medication Instructions Recorded Confirmed Last Taken Type AtorvaSTATin [Lipitor] 40 mg PO QHS 03/05/22 03/05/22 Unknown History Clopidogrel [Plavix] 75 mg PO QDAY 03/05/22 03/05/22 Unknown History Cyclobenzaprine [Flexeril] 10 mg PO HS 03/05/22 03/05/22 Unknown History Furosemide [Lasix] 40 mg PO DAILY 03/05/22 03/05/22 Unknown History Glimepiride [Amaryl] 4 mg PO QAM 03/05/22 03/05/22 Unknown History HYDROcodone/APAP 10-325 [[place] 1 each PO TID 03/05/22 03/05/22 Unknown History 10325] Metformin HCl [metFORMIN] 1,000 mg PO BID 03/05/22 03/05/22 Unknown History Metoprolol Xl [Metoprolol 25 mg PO QDAY 03/05/22 03/05/22 Unknown History SUCCINATE ER TAB] Omeprazole 40 mg PO DAILY 03/05/22 03/05/22 Unknown History Pregabalin [Lyrica] 100 mg PO DAILY 03/05/22 03/05/22 Unknown History carvediloL [Coreg] 6.25 mg PO BID 03/05/22 03/05/22 Unknown History lisinopriL [Lisinopril] 10 mg PO DAILY 03/05/22 03/05/22 Unknown History traZODone [Desyrel] 50 mg PO HS 03/05/22 03/05/22 Unknown History Active Meds: Active Medications Acetaminophen (Acetaminophen 325 Mg Tab) 650 mg PO Q4H PRN PRN Reason: Pain, Mild (1-3) Last Admin: 03/06/22 16:38 Dose: 650 mg Atorvastatin Calcium (Atorvastatin 40 Mg Tab) 40 mg PO QHS [facility] Last Admin: 03/06/22 21:29 Dose: 40 mg Carvedilol (Carvedilol 6.25 Mg Tab) 6.25 mg PO BID [facility] Last Admin: 03/07/22 09:34 Dose: 6.25 mg Clonazepam (Clonazepam 0.5 Mg Tab) 0.5 mg PO BID PRN PRN Reason: Anxiety Clopidogrel Bisulfate (Clopidogrel 75 Mg Tab) 75 mg PO QDAY [facility] Last Admin: 03/07/22 09:36 Dose: 75 mg Cyclobenzaprine HCl (Cyclobenzaprine 10 Mg Tab) 10 mg PO HS [facility] Last Admin: 03/06/22 21:29 Dose: 10 mg Dextrose (Dextrose 50% In Water (25gm) 50 Ml Syringe) 50 ml IV Q30MIN PRN; Protocol PRN Reason: Hypoglycemia Duloxetine HCl (Duloxetine 30 Mg Cap) 60 mg PO QDAY [facility] Last Admin: 03/07/22 09:35 Dose: 60 mg Fluoxetine HCl (Fluoxetine 20 Mg Cap) 40 mg PO QDAY [facility] Last Admin: 03/07/22 09:35 Dose: 40 mg Furosemide (Furosemide 40 Mg Tab) 40 mg PO DAILY [facility] Last Admin: 03/07/22 09:36 Dose: 40 mg Glimepiride (Glimepiride 4 Mg Tab) 4 mg PO QAMDIAB [facility] Last Admin: 03/07/22 09:33 Dose: 4 mg Hydroxyzine Pamoate (Hydroxyzine Pamoate 25 Mg Cap) 25 mg PO Q6H PRN PRN Reason: Anxiety Insulin Human Lispro (Insulin Lispro 100 Unit/Ml) 0 unit SUB-Q ACHS [facility]; Protocol Last Admin: 03/07/22 09:31 Dose: 3 unit Metformin HCl (Metformin 500 Mg Tab) 1,000 mg PO BIDDIAB [facility] Last Admin: 03/07/22 09:34 Dose: 1,000 mg Nicotine (Nicotine 21 Mg/24 Hr Patch) 21 mg TD QDAY [facility] Last Admin: 03/07/22 09:35 Dose: 21 mg Oxycodone/Acetaminophen (Oxycodone /Acetaminophen 5-325mg Tab) 1 tab PO Q6H PRN PRN Reason: Pain, Moderate (4-6) Last Admin: 03/07/22 09:34 Dose: 1 tab Pantoprazole Sodium (Pantoprazole 40 Mg Tab) 40 mg PO QDAC [facility] Last Admin: 03/07/22 09:36 Dose: 40 mg Pregabalin (Pregabalin 50 Mg Cap) 100 mg PO QDAY [facility] Last Admin: 03/07/22 09:35 Dose: 100 mg Trazodone HCl (Trazodone 50 Mg Tab) 50 mg PO HS [facility] Last Admin: 03/06/22 21:28 Dose: 50 mg Results - Results Labs/Vitals: Laboratory Last Values WBC 9.8 K/mm3 (4.5-11.0) 03/05/22 06:44 RBC 5.23 M/mm3 (3.65-5.03) H 03/05/22 06:44 Hgb 14.8 gm/dl (11.8-15.2) 03/05/22 06:44 Hct 45.1 % (35.5-45.6) 03/05/22 06:44 MCV 86 fl (84-94) 03/05/22 06:44 MCH 28 pg (28-32) 03/05/22 06:44 MCHC 33 % (32-34) 03/05/22 06:44 RDW 16.7 % (13.2-15.2) H 03/05/22 06:44 Plt Count 283 K/mm3 (140-440) 03/05/22 06:44 Lymph % (Auto) 32.8 % (13.4-35.0) 03/05/22 06:44 [place] % (Auto) 9.5 % (0.0-7.3) H 03/05/22 06:44 Eos % (Auto) 3.5 % (0.0-4.3) 03/05/22 06:44 Baso % (Auto) 0.7 % (0.0-1.8) 03/05/22 06:44 Lymph # (Auto) 3.2 K/mm3 (1.2-5.4) 03/05/22 06:44 [place] # (Auto) 0.9 K/mm3 (0.0-0.8) H 03/05/22 06:44 Eos # (Auto) 0.3 K/mm3 (0.0-0.4) 03/05/22 06:44 Baso # (Auto) 0.1 K/mm3 (0.0-0.1) 03/05/22 06:44 Seg Neutrophils % 53.5 % (40.0-70.0) 03/05/22 06:44 Seg Neutrophils # 5.3 K/mm3 (1.8-7.7) 03/05/22 06:44 Sodium 136 mmol/L (137-145) L 03/06/22 06:08 Potassium 4.2 mmol/L (3.6-5.0) 03/06/22 06:08 Chloride 100.1 mmol/L (98-107) 03/06/22 06:08 Carbon Dioxide 25 mmol/L (22-30) 03/06/22 06:08 Anion Gap 15 mmol/L 03/06/22 06:08 BUN 24 mg/dL (9-20) H 03/06/22 06:08 Creatinine 1.0 mg/dL (0.8-1.3) 03/06/22 06:08 Estimated GFR > 60 ml/min 03/06/22 06:08 BUN/Creatinine Ratio 24 % 03/06/22 06:08 Glucose 254 mg/dL (75-100) H 03/06/22 06:08 POC Glucose 171 mg/dL (70-105) H 03/06/22 20:49 Hemoglobin A1c 8.2 % (4-6) H 03/05/22 06:44 Calcium 9.2 mg/dL (8.4-10.2) 03/06/22 06:08 Total Bilirubin 0.30 mg/dL (0.1-1.2) 03/06/22 06:08 AST 19 units/L (5-40) 03/06/22 06:08 ALT 36 units/L (7-56) 03/06/22 06:08 Alkaline Phosphatase 163 units/L (35-129) H 03/06/22 06:08 Total Protein 6.5 g/dL (6.3-8.2) 03/06/22 06:08 Albumin 4.1 g/dL (3.9-5) 03/06/22 06:08 Albumin/Globulin Ratio 1.7 % 03/06/22 06:08 Triglycerides 327 mg/dL (2-149) H 03/05/22 06:44 Cholesterol 156 mg/dL (50-199) 03/05/22 06:44 LDL Cholesterol Direct 74 mg/dL (50-130) 03/05/22 06:44 HDL Cholesterol 51 mg/dL (40-59) 03/05/22 06:44 Cholesterol/HDL Ratio 3.05 % 03/05/22 06:44 TSH 2.460 mlU/mL (0.270-4.200) 03/05/22 06:44 Last Vital Signs Temp 98.7 F 03/07/22 08:15 Pulse 98 H 03/07/22 09:34 Resp 16 03/07/22 08:15 BP 118/77 03/07/22 09:34 Pulse Ox 98 03/07/22 08:15
[2022-03-07] MEDS: CYCLOBENZAPRINE 10 MG TAB PO SCH (21:44)
[2022-03-07] MEDS: traZODone 50 MG TAB PO SCH (21:44)
--- NOTE | 2022-03-07 21:55 | Progress Note ---
Assessment and Plan - Patient Problems (1) Hypertension Current Visit: Yes Status: Acute Qualifiers: Hypertension type: primary hypertension Qualified Code(s): I10 - Essential (primary) hypertension Plan to address problem: Monitor blood pressure every shift, continue medical management. (2) Diabetes Current Visit: Yes Status: Acute Plan to address problem: Consistent carbohydrate diet, Accu-Chek, insulin protocol, hypoglycemia protocol (3) Obesity hypoventilation syndrome Current Visit: Yes Status: Acute Plan to address problem: Balanced diet, increase physical activity at discharge, outpatient pulmonary follow-up for sleep study. (4) Hyperlipidemia Current Visit: Yes Status: Acute Qualifiers: Hyperlipidemia type: mixed hyperlipidemia Qualified Code(s): E78.2 - Mixed hyperlipidemia Plan to address problem: Low-cholesterol diet, statin therapy as clinically indicated, supportive care. (5) Coronary artery disease Current Visit: Yes Status: Acute Plan to address problem: Antiplatelet therapy as clinically indicated, risk factor reduction, supportive care, statin therapy as clinically indicated, low-cholesterol diet. (6) Nicotine dependence Current Visit: Yes Status: Acute Qualifiers: Nicotine product type: cigarettes Substance use status: in withdrawal Qualified Code(s): F17.213 - Nicotine dependence, cigarettes, with withdrawal Plan to address problem: Smoke cessation counseling, supportive care, behavior change counseling, +15 minutes. (7) Advance care planning Current Visit: Yes Status: Acute Plan to address problem: Disease education conducted, care plan discussed, diagnoses discussed, prognosis discussed, patient is full code. Patient acknowledges understanding and agreement with care plan, +30 minutes. (8) Preventative health care Current Visit: Yes Status: Acute Plan to address problem: Patient counseled regarding weight loss, meal planning, increase physical activity discharge, decreasing overall health risk, smoking cessation, +30 min utes. History Interval history: 56 YO Male with HTN, DM, HLD, CAD, Obesity Hypoventilation Syndrome, Nicotine Dependence, MDD, Nicotine Dependence, GERD. Pt is admitted to [facility] for psychiatric stabilization. Consult placed by Dr. Mullen for medical management. Patient seen and evaluated in the recreation room. Patient denies pain. Patient remains comfortable. No reported Nursing events. . Hospitalist Physical - Constitutional Vitals: Temp Pulse Resp BP Pulse Ox 98.1 F 74 16 127/73 98 03/07/22 20:47 03/07/22 21:44 03/07/22 20:47 03/07/22 21:44 03/07/22 20:47 General appearance: Present: no acute distress, well-nourished, obese - EENT Eyes: Present: PERRL ENT: hearing intact - Neck Neck: Present: supple - Respiratory Respiratory effort: normal Respiratory: bilateral: diminished - Cardiovascular Rhythm: regular Heart Sounds: Present: S1 & S2 - Extremities Extremities: no ischemia Peripheral Pulses: within normal limits - Abdominal General gastrointestinal: soft, non-tender, non-distended - Integumentary Integumentary: Present: clear - Psychiatric Psychiatric: cooperative - Neurologic Neurologic: CNII-XII intact Results - Labs CBC & Chem 7: 03/05/22 06:44 03/06/22 06:08 Labs: Laboratory Last Values WBC 9.8 K/mm3 (4.5-11.0) 03/05/22 06:44 RBC 5.23 M/mm3 (3.65-5.03) H 03/05/22 06:44 Hgb 14.8 gm/dl (11.8-15.2) 03/05/22 06:44 Hct 45.1 % (35.5-45.6) 03/05/22 06:44 MCV 86 fl (84-94) 03/05/22 06:44 MCH 28 pg (28-32) 03/05/22 06:44 MCHC 33 % (32-34) 03/05/22 06:44 RDW 16.7 % (13.2-15.2) H 03/05/22 06:44 Plt Count 283 K/mm3 (140-440) 03/05/22 06:44 Lymph % (Auto) 32.8 % (13.4-35.0) 03/05/22 06:44 [place] % (Auto) 9.5 % (0.0-7.3) H 03/05/22 06:44 Eos % (Auto) 3.5 % (0.0-4.3) 03/05/22 06:44 Baso % (Auto) 0.7 % (0.0-1.8) 03/05/22 06:44 Lymph # (Auto) 3.2 K/mm3 (1.2-5.4) 03/05/22 06:44 [place] # (Auto) 0.9 K/mm3 (0.0-0.8) H 03/05/22 06:44 Eos # (Auto) 0.3 K/mm3 (0.0-0.4) 03/05/22 06:44 Baso # (Auto) 0.1 K/mm3 (0.0-0.1) 03/05/22 06:44 Seg Neutrophils % 53.5 % (40.0-70.0) 03/05/22 06:44 Seg Neutrophils # 5.3 K/mm3 (1.8-7.7) 03/05/22 06:44 Sodium 136 mmol/L (137-145) L 03/06/22 06:08 Potassium 4.2 mmol/L (3.6-5.0) 03/06/22 06:08 Chloride 100.1 mmol/L (98-107) 03/06/22 06:08 Carbon Dioxide 25 mmol/L (22-30) 03/06/22 06:08 Anion Gap 15 mmol/L 03/06/22 06:08 BUN 24 mg/dL (9-20) H 03/06/22 06:08 Creatinine 1.0 mg/dL (0.8-1.3) 03/06/22 06:08 Estimated GFR > 60 ml/min 03/06/22 06:08 BUN/Creatinine Ratio 24 % 03/06/22 06:08 Glucose 254 mg/dL (75-100) H 03/06/22 06:08 POC Glucose 166 mg/dL (70-105) H 03/07/22 16:23 Hemoglobin A1c 8.2 % (4-6) H 03/05/22 06:44 Calcium 9.2 mg/dL (8.4-10.2) 03/06/22 06:08 Total Bilirubin 0.30 mg/dL (0.1-1.2) 03/06/22 06:08 AST 19 units/L (5-40) 03/06/22 06:08 ALT 36 units/L (7-56) 03/06/22 06:08 Alkaline Phosphatase 163 units/L (35-129) H 03/06/22 06:08 Total Protein 6.5 g/dL (6.3-8.2) 03/06/22 06:08 Albumin 4.1 g/dL (3.9-5) 03/06/22 06:08 Albumin/Globulin Ratio 1.7 % 03/06/22 06:08 Triglycerides 327 mg/dL (2-149) H 03/05/22 06:44 Cholesterol 156 mg/dL (50-199) 03/05/22 06:44 LDL Cholesterol Direct 74 mg/dL (50-130) 03/05/22 06:44 HDL Cholesterol 51 mg/dL (40-59) 03/05/22 06:44 Cholesterol/HDL Ratio 3.05 % 03/05/22 06:44 TSH 2.460 mlU/mL (0.270-4.200) 03/05/22 06:44 [place]/IV: Voiding Method Toilet Active Medications - Current Medications Current Medications: Generic Name Dose Route Start Last Admin Trade Name Freq PRN Reason Stop Dose Admin Acetaminophen 650 mg 03/06/22 16:27 03/06/22 16:38 Acetaminophen 325 Mg Tab PO 650 mg Q4H PRN Administration Pain, Mild (1-3) Atorvastatin Calcium 40 mg 03/05/22 22:00 03/07/22 21:44 Atorvastatin 40 Mg Tab PO 40 mg QHS MAULIK Administration Carvedilol 6.25 mg 03/05/22 10:00 03/07/22 21:44 Carvedilol 6.25 Mg Tab PO 6.25 mg BID MAULIK Administration Clonazepam 0.5 mg 03/05/22 10:00 Clonazepam 0.5 Mg Tab PO BID PRN Anxiety Clopidogrel Bisulfate 75 mg 03/05/22 10:00 03/07/22 09:36 Clopidogrel 75 Mg Tab PO 75 mg QDAY MAULIK Administration Cyclobenzaprine HCl 10 mg 03/05/22 22:00 03/07/22 21:44 Cyclobenzaprine 10 Mg Tab PO 10 mg HS MAULIK Administration Dextrose 50 ml 03/06/22 10:00 Dextrose 50% In Water (25gm) 50 Ml Syringe IV Q30MIN PRN Hypoglycemia Protocol Duloxetine HCl 60 mg 03/05/22 10:00 03/07/22 09:35 Duloxetine 30 Mg Cap PO 60 mg QDAY MAULIK Administration Fluoxetine HCl 40 mg 03/05/22 10:00 03/07/22 09:35 Fluoxetine 20 Mg Cap PO 40 mg QDAY MAULIK Administration Furosemide 40 mg 03/05/22 10:00 03/07/22 09:36 Furosemide 40 Mg Tab PO 40 mg DAILY MAULIK Administration Glimepiride 4 mg 03/05/22 10:00 03/07/22 09:33 Glimepiride 4 Mg Tab PO 4 mg QAMDIAB MAULIK Administration Hydroxyzine Pamoate 25 mg 03/05/22 13:30 Hydroxyzine Pamoate 25 Mg Cap PO Q6H PRN Anxiety Insulin Human Lispro 0 unit 03/06/22 16:30 03/07/22 16:37 Insulin Lispro 100 Unit/Ml SUB-Q 2 unit ACHS MAULIK Administration Protocol Metformin HCl 1,000 mg 03/06/22 11:00 03/07/22 16:40 Metformin 500 Mg Tab PO 1,000 mg BIDDIAB MAULIK Administration Nicotine 21 mg 03/05/22 10:00 03/07/22 09:35 Nicotine 21 Mg/24 Hr Patch TD 21 mg QDAY MAULIK Administration Oxycodone/Acetaminophen 1 tab 03/06/22 17:29 03/07/22 09:34 Oxycodone /Acetaminophen 5-325mg Tab PO 1 tab Q6H PRN Administration Pain, Moderate (4-6) Pantoprazole Sodium 40 mg 03/05/22 11:00 03/07/22 09:36 Pantoprazole 40 Mg Tab PO 40 mg QDAC MAULIK Administration Pregabalin 100 mg 03/05/22 10:00 03/07/22 09:35 Pregabalin 50 Mg Cap PO 100 mg QDAY MAULIK Administration Trazodone HCl 50 mg 03/05/22 22:00 03/07/22 21:44 Trazodone 50 Mg Tab PO 50 mg HS MAULIK Administration
[2022-03-08] MEDS: PANTOPRAZOLE 40 MG TAB PO SCH (07:16)
[2022-03-08] MEDS: INSULIN LISPRO 100 UNIT/ML SUB-Q SCH ×4 (07:30→22:00)
--- NOTE | 2022-03-08 08:35 | Progress Note ---
Subjective Date of service: 03/08/22 Principal diagnosis: MDD Subjective Comment: The patient was seen today. He says he's doing alright and slept "like a log." He denies SI/HI or hallucinations of any kind. 03/07 The patient was seen today. He says he's tired. He says he's been stressed and depressed about his bills piling up. The patient says "but I'm starting to feel better." The patient denies SI/HI, but then states, "thought about doing something stupid." He then says "but that was before." 03/06: The patient was seen this morning. He reports feeling better. Continues to endorse depression rating as 8/10. No hallucinations. REVIEW OF SYSTEMS Constitutional: Negative for weight loss ENT: Negative for stridor Respiratory: Negative for cough or hemoptysis All other systems reviewed and are negative MENTAL STATUS EXAMINATION General Appearance and Behavior: Age appropriate, good hygiene, wearing appropriate clothes, fair eye contact, calm, cooperative and polite Cooperation: Cooperative Psychomotor Behavior: Psychomotor normal Mood: Depressed Affect and affective range: congruent with stated mood Thought Process: Goal directed Thought Content: Reality oriented Speech: normal tone and pace Suicidal Ideation: Denies Homicidal Ideation: Denies Hallucinations: Denies Delusions: None elicited Impulse Control: Limited Insight and Judgment: Limited insight and judgment Memory: Limited Attention: attentive Orientation: Alert, oriented Assessment and Plan Major depressive disorder Treatment Plan Patient admitted for inpatient psychiatric evaluation, medication adjustment and close monitoring The patient's behavior, mood, sleep and appetite will be closely monitored. Patient enrolled in individual and group therapeutic sessions and encouraged to attend. Patient provided with a safe and structured environment. Patient's physical health needs will be addressed by the Hospitalist. Hospitalist Consulted Labs including CBC, CMP, Lipid profile and Hemoglobin A1C levels ordered for baseline reference Social Assessment will be completed and the [employer] will work with patient and family to ensure a suitable and safe disposition Medication adjustment will be made as clinically indicated Continue meds Usual Wellness Baptism/Preservation: - Start Trazodone 50 mg po QHS & 50 mg po QHS PRN between 10 PM & 2 AM for insomnia - Start Melatonin 5 mg po QHS to promote circadian rhythm The patient agreed on the treatment plan, understood the risk, benefit, alternative treatment, potential consequence of no treatment, and gave informed consent. Estimated days: 6 Post hospital care: primary care provider, psychiatric provider Case staffed with Dr. Mcbride Medications and Allergies Allergies Allergy/AdvReac Type Severity Reaction Status Date / Time No Known Allergies Allergy Unverified 03/04/22 17:57 Home Medications Medication Instructions Recorded Confirmed Last Taken Type AtorvaSTATin [Lipitor] 40 mg PO QHS 03/05/22 03/05/22 Unknown History Clopidogrel [Plavix] 75 mg PO QDAY 03/05/22 03/05/22 Unknown History Cyclobenzaprine [Flexeril] 10 mg PO HS 03/05/22 03/05/22 Unknown History Furosemide [Lasix] 40 mg PO DAILY 03/05/22 03/05/22 Unknown History Glimepiride [Amaryl] 4 mg PO QAM 03/05/22 03/05/22 Unknown History HYDROcodone/APAP 10-325 [[place] 1 each PO TID 03/05/22 03/05/22 Unknown History 10/325] Metformin HCl [metFORMIN] 1,000 mg PO BID 03/05/22 03/05/22 Unknown History Metoprolol Xl [Metoprolol 25 mg PO QDAY 03/05/22 03/05/22 Unknown History SUCCINATE ER TAB] Omeprazole 40 mg PO DAILY 03/05/22 03/05/22 Unknown History Pregabalin [Lyrica] 100 mg PO DAILY 03/05/22 03/05/22 Unknown History carvediloL [Coreg] 6.25 mg PO BID 03/05/22 03/05/22 Unknown History lisinopriL [Lisinopril] 10 mg PO DAILY 03/05/22 03/05/22 Unknown History traZODone [Desyrel] 50 mg PO HS 03/05/22 03/05/22 Unknown History Active Meds: Active Medications Acetaminophen (Acetaminophen 325 Mg Tab) 650 mg PO Q4H PRN PRN Reason: Pain, Mild (1-3) Last Admin: 03/06/22 16:38 Dose: 650 mg Atorvastatin Calcium (Atorvastatin 40 Mg Tab) 40 mg PO QHS [facility] Last Admin: 03/07/22 21:44 Dose: 40 mg Carvedilol (Carvedilol 6.25 Mg Tab) 6.25 mg PO BID [facility] Last Admin: 03/07/22 21:44 Dose: 6.25 mg Clonazepam (Clonazepam 0.5 Mg Tab) 0.5 mg PO BID PRN PRN Reason: Anxiety Clopidogrel Bisulfate (Clopidogrel 75 Mg Tab) 75 mg PO QDAY [facility] Last Admin: 03/07/22 09:36 Dose: 75 mg Cyclobenzaprine HCl (Cyclobenzaprine 10 Mg Tab) 10 mg PO HS [facility] Last Admin: 03/07/22 21:44 Dose: 10 mg Dextrose (Dextrose 50% In Water (25gm) 50 Ml Syringe) 50 ml IV Q30MIN PRN; Protocol PRN Reason: Hypoglycemia Duloxetine HCl (Duloxetine 30 Mg Cap) 60 mg PO QDAY [facility] Last Admin: 03/07/22 09:35 Dose: 60 mg Fluoxetine HCl (Fluoxetine 20 Mg Cap) 40 mg PO QDAY [facility] Last Admin: 03/07/22 09:35 Dose: 40 mg Furosemide (Furosemide 40 Mg Tab) 40 mg PO DAILY [facility] Last Admin: 03/07/22 09:36 Dose: 40 mg Glimepiride (Glimepiride 4 Mg Tab) 4 mg PO QAMDIAB [facility] Last Admin: 03/07/22 09:33 Dose: 4 mg Hydroxyzine Pamoate (Hydroxyzine Pamoate 25 Mg Cap) 25 mg PO Q6H PRN PRN Reason: Anxiety Insulin Human Lispro (Insulin Lispro 100 Unit/Ml) 0 unit SUB-Q [facility]; Protocol Last Admin: 03/07/22 22:26 Dose: 2 unit Metformin HCl (Metformin 500 Mg Tab) 1,000 mg PO BIDDIAB [facility] Last Admin: 03/07/22 16:40 Dose: 1,000 mg Nicotine (Nicotine 21 Mg/24 Hr Patch) 21 mg TD QDAY [facility] Last Admin: 03/07/22 09:35 Dose: 21 mg Oxycodone/Acetaminophen (Oxycodone /Acetaminophen 5-325mg Tab) 1 tab PO Q6H PRN PRN Reason: Pain, Moderate (4-6) Last Admin: 03/07/22 23:13 Dose: 1 tab Pantoprazole Sodium (Pantoprazole 40 Mg Tab) 40 mg PO QDAC [facility] Last Admin: 03/08/22 07:16 Dose: 40 mg Pregabalin (Pregabalin 50 Mg Cap) 100 mg PO QDAY [facility] Last Admin: 03/07/22 09:35 Dose: 100 mg Trazodone HCl (Trazodone 50 Mg Tab) 50 mg PO HS MAULIK Last Admin: 03/07/22 21:44 Dose: 50 mg Results - Results Labs/Vitals: Laboratory Last Values WBC 9.8 K/mm3 (4.5-11.0) 03/05/22 06:44 RBC 5.23 M/mm3 (3.65-5.03) H 03/05/22 06:44 Hgb 14.8 gm/dl (11.8-15.2) 03/05/22 06:44 Hct 45.1 % (35.5-45.6) 03/05/22 06:44 MCV 86 fl (84-94) 03/05/22 06:44 MCH 28 pg (28-32) 03/05/22 06:44 MCHC 33 % (32-34) 03/05/22 06:44 RDW 16.7 % (13.2-15.2) H 03/05/22 06:44 Plt Count 283 K/mm3 (140-440) 03/05/22 06:44 Lymph % (Auto) 32.8 % (13.4-35.0) 03/05/22 06:44 [place] % (Auto) 9.5 % (0.0-7.3) H 03/05/22 06:44 Eos % (Auto) 3.5 % (0.0-4.3) 03/05/22 06:44 Baso % (Auto) 0.7 % (0.0-1.8) 03/05/22 06:44 Lymph # (Auto) 3.2 K/mm3 (1.2-5.4) 03/05/22 06:44 [place] # (Auto) 0.9 K/mm3 (0.0-0.8) H 03/05/22 06:44 Eos # (Auto) 0.3 K/mm3 (0.0-0.4) 03/05/22 06:44 Baso # (Auto) 0.1 K/mm3 (0.0-0.1) 03/05/22 06:44 Seg Neutrophils % 53.5 % (40.0-70.0) 03/05/22 06:44 Seg Neutrophils # 5.3 K/mm3 (1.8-7.7) 03/05/22 06:44 Sodium 136 mmol/L (137-145) L 03/06/22 06:08 Potassium 4.2 mmol/L (3.6-5.0) 03/06/22 06:08 Chloride 100.1 mmol/L (98-107) 03/06/22 06:08 Carbon Dioxide 25 mmol/L (22-30) 03/06/22 06:08 Anion Gap 15 mmol/L 03/06/22 06:08 BUN 24 mg/dL (9-20) H 03/06/22 06:08 Creatinine 1.0 mg/dL (0.8-1.3) 03/06/22 06:08 Estimated GFR > 60 ml/min 03/06/22 06:08 BUN/Creatinine Ratio 24 % 03/06/22 06:08 Glucose 254 mg/dL (75-100) H 03/06/22 06:08 POC Glucose 193 mg/dL (70-105) H 03/07/22 19:36 Hemoglobin A1c 8.2 % (4-6) H 03/05/22 06:44 Calcium 9.2 mg/dL (8.4-10.2) 03/06/22 06:08 Total Bilirubin 0.30 mg/dL (0.1-1.2) 03/06/22 06:08 AST 19 units/L (5-40) 03/06/22 06:08 ALT 36 units/L (7-56) 03/06/22 06:08 Alkaline Phosphatase 163 units/L (35-129) H 03/06/22 06:08 Total Protein 6.5 g/dL (6.3-8.2) 03/06/22 06:08 Albumin 4.1 g/dL (3.9-5) 03/06/22 06:08 Albumin/Globulin Ratio 1.7 % 03/06/22 06:08 Triglycerides 327 mg/dL (2-149) H 03/05/22 06:44 Cholesterol 156 mg/dL (50-199) 03/05/22 06:44 LDL Cholesterol Direct 74 mg/dL (50-130) 03/05/22 06:44 HDL Cholesterol 51 mg/dL (40-59) 03/05/22 06:44 Cholesterol/HDL Ratio 3.05 % 03/05/22 06:44 TSH 2.460 mlU/mL (0.270-4.200) 03/05/22 06:44 Last Vital Signs Temp 98.1 F 03/07/22 20:47 Pulse 74 03/07/22 21:44 Resp 16 03/07/22 23:13 BP 127/73 03/07/22 21:44 Pulse Ox 98 03/07/22 20:47
[2022-03-08] MEDS: metFORMIN 500 MG TAB PO SCH ×2 (08:42→17:03)
[2022-03-08] MEDS: GLIMEPIRIDE 4 MG TAB PO SCH (08:42)
[2022-03-08] MEDS: carvediloL 6.25 MG TAB PO SCH ×2 (09:51→21:25)
[2022-03-08] MEDS: PREGABALIN 50 MG CAP PO SCH (09:53)
[2022-03-08] MEDS: FLUoxetine 20 MG CAP PO SCH (09:53)
[2022-03-08] MEDS: FUROSEMIDE 40 MG TAB PO SCH (09:54)
[2022-03-08] MEDS: DULoxetine 30 MG CAP PO SCH (09:54)
[2022-03-08] MEDS: CLOPIDOGREL 75 MG TAB PO SCH (09:54)
[2022-03-08] MEDS: NICOTINE 21 MG/24 HR PATCH TD SCH (09:56)
[2022-03-08] MEDS: oxyCODONE /ACETAMINOPHEN 5-325MG TAB PO PRN ×2 (10:36→18:15)
[2022-03-08] MEDS: CYCLOBENZAPRINE 10 MG TAB PO SCH (21:26)
[2022-03-08] MEDS: traZODone 50 MG TAB PO SCH (21:26)
[2022-03-09] MEDS: INSULIN LISPRO 100 UNIT/ML SUB-Q SCH ×4 (07:30→22:23)
[2022-03-09] MEDS: metFORMIN 500 MG TAB PO SCH ×2 (08:00→17:06)
[2022-03-09] MEDS: PANTOPRAZOLE 40 MG TAB PO SCH (08:00)
[2022-03-09] MEDS: FUROSEMIDE 40 MG TAB PO SCH (09:00)
[2022-03-09] MEDS: DULoxetine 30 MG CAP PO SCH (09:00)
[2022-03-09] MEDS: NICOTINE 21 MG/24 HR PATCH TD SCH (09:00)
[2022-03-09] MEDS: FLUoxetine 20 MG CAP PO SCH (09:00)
[2022-03-09] MEDS: PREGABALIN 50 MG CAP PO SCH (09:00)
[2022-03-09] MEDS: GLIMEPIRIDE 4 MG TAB PO SCH (09:02)
[2022-03-09] MEDS: carvediloL 6.25 MG TAB PO SCH ×2 (09:02→21:19)
[2022-03-09] MEDS: CLOPIDOGREL 75 MG TAB PO SCH (09:02)
[2022-03-09] MEDS: oxyCODONE /ACETAMINOPHEN 5-325MG TAB PO PRN ×2 (09:04→17:07)
--- NOTE | 2022-03-09 10:26 | Progress Note ---
Subjective Date of service: 03/09/22 Principal diagnosis: MDD Subjective Comment: The patient was seen today. He says he's not feeling well because his back is hurting. The patient denies SI/HI or hallucinations of any kind. Will continue current regimen. 03/08 The patient was seen today. He says he's doing alright and slept "like a log." He denies SI/HI or hallucinations of any kind. 03/07 The patient was seen today. He says he's tired. He says he's been stressed and depressed about his bills piling up. The patient says "but I'm starting to feel better." The patient denies SI/HI, but then states, "thought about doing something stupid." He then says "but that was before." 03/06: The patient was seen this morning. He reports feeling better. Continues to endorse depression rating as 8/10. No hallucinations. REVIEW OF SYSTEMS Constitutional: Negative for weight loss ENT: Negative for stridor Respiratory: Negative for cough or hemoptysis All other systems reviewed and are negative MENTAL STATUS EXAMINATION General Appearance and Behavior: Age appropriate, good hygiene, wearing appropriate clothes, fair eye contact, calm, cooperative and polite Cooperation: Cooperative Psychomotor Behavior: Psychomotor normal Mood: Depressed Affect and affective range: congruent with stated mood Thought Process: Goal directed Thought Content: Reality oriented Speech: normal tone and pace Suicidal Ideation: Denies Homicidal Ideation: Denies Hallucinations: Denies Delusions: None elicited Impulse Control: Limited Insight and Judgment: Limited insight and judgment Memory: Limited Attention: attentive Orientation: Alert, oriented Assessment and Plan Major depressive disorder Treatment Plan Patient admitted for inpatient psychiatric evaluation, medication adjustment and close monitoring The patient's behavior, mood, sleep and appetite will be closely monitored. Patient enrolled in individual and group therapeutic sessions and encouraged to attend. Patient provided with a safe and structured environment. Patient's physical health needs will be addressed by the Hospitalist. Hospit alist Consulted Labs including CBC, CMP, Lipid profile and Hemoglobin A1C levels ordered for baseline reference Social Assessment will be completed and the Information Technology Intern will work with patient and family to ensure a suitable and safe disposition Medication adjustment will be made as clinically indicated Continue meds Usual Wellness Yazidi/Preservation: - Start Trazodone 50 mg po QHS & 50 mg po QHS PRN between 10 PM & 2 AM for insomnia - Start Melatonin 5 mg po QHS to promote circadian rhythm The patient agreed on the treatment plan, understood the risk, benefit, alternative treatment, potential consequence of no treatment, and gave informed consent. Estimated days: 6 Post hospital care: primary care provider, psychiatric provider Case staffed with Dr. Mcbride Medications and Allergies Allergies Allergy/AdvReac Type Severity Reaction Status Date / Time No Known Allergies Allergy Unverified 03/04/22 17:57 Home Medications Medication Instructions Recorded Confirmed Last Taken Type AtorvaSTATin [Lipitor] 40 mg PO QHS 03/05/22 03/05/22 Unknown History Clopidogrel [Plavix] 75 mg PO QDAY 03/05/22 03/05/22 Unknown History Cyclobenzaprine [Flexeril] 10 mg PO HS 03/05/22 03/05/22 Unknown History Furosemide [Lasix] 40 mg PO DAILY 03/05/22 03/05/22 Unknown History Glimepiride [Amaryl] 4 mg PO QAM 03/05/22 03/05/22 Unknown History HYDROcodone/APAP 10-325 [Altair 1 each PO TID 03/05/22 03/05/22 Unknown History 10/325] Metformin HCl [metFORMIN] 1,000 mg PO BID 03/05/22 03/05/22 Unknown History Metoprolol Xl [Metoprolol 25 mg PO QDAY 03/05/22 03/05/22 Unknown History SUCCINATE ER TAB] Omeprazole 40 mg PO DAILY 03/05/22 03/05/22 Unknown History Pregabalin [Lyrica] 100 mg PO DAILY 03/05/22 03/05/22 Unknown History carvediloL [Coreg] 6.25 mg PO BID 03/05/22 03/05/22 Unknown History lisinopriL [Lisinopril] 10 mg PO DAILY 03/05/22 03/05/22 Unknown History traZODone [Desyrel] 50 mg PO HS 03/05/22 03/05/22 Unknown History Active Meds: Active Medications Acetaminophen (Acetaminophen 325 Mg Tab) 650 mg PO Q4H PRN PRN Reason: Pain, Mild (1-3) Last Admin: 03/06/22 16:38 Dose: 650 mg Atorvastatin Calcium (Atorvastatin 40 Mg Tab) 40 mg PO QHS [facility] Last Admin: 03/08/22 21:27 Dose: 40 mg Carvedilol (Carvedilol 6.25 Mg Tab) 6.25 mg PO BID [facility] Last Admin: 03/09/22 09:02 Dose: 6.25 mg Clonazepam (Clonazepam 0.5 Mg Tab) 0.5 mg PO BID PRN PRN Reason: Anxiety Clopidogrel Bisulfate (Clopidogrel 75 Mg Tab) 75 mg PO QDAY [facility] Last Admin: 03/09/22 09:02 Dose: 75 mg Cyclobenzaprine HCl (Cyclobenzaprine 10 Mg Tab) 10 mg PO HS [facility] Last Admin: 03/08/22 21:26 Dose: 10 mg Dextrose (Dextrose 50% In Water (25gm) 50 Ml Syringe) 50 ml IV Q30MIN PRN; Protocol PRN Reason: Hypoglycemia Duloxetine HCl (Duloxetine 30 Mg Cap) 60 mg PO QDAY [facility] Last Admin: 03/09/22 09:00 Dose: 60 mg Fluoxetine HCl (Fluoxetine 20 Mg Cap) 40 mg PO QDAY [facility] Last Admin: 03/09/22 09:00 Dose: 40 mg Furosemide (Furosemide 40 Mg Tab) 40 mg PO DAILY [facility] Last Admin: 03/09/22 09:00 Dose: 40 mg Glimepiride (Glimepiride 4 Mg Tab) 4 mg PO QAMDIAB [facility] Last Admin: 03/09/22 09:02 Dose: 4 mg Hydroxyzine Pamoate (Hydroxyzine Pamoate 25 Mg Cap) 25 mg PO Q6H PRN PRN Reason: Anxiety Insulin Human Lispro (Insulin Lispro 100 Unit/Ml) 0 unit SUB-Q ACHS [facility]; Protocol Last Admin: 03/08/22 22:00 Dose: 3 unit Metformin HCl (Metformin 500 Mg Tab) 1,000 mg PO BIDDIAB [facility] Last Admin: 03/09/22 08:00 Dose: 1,000 mg Nicotine (Nicotine 21 Mg/24 Hr Patch) 21 mg TD QDAY [facility] Last Admin: 03/09/22 09:00 Dose: 21 mg Oxycodone/Acetaminophen (Oxycodone /Acetaminophen 5-325mg Tab) 1 tab PO Q6H PRN PRN Reason: Pain, Moderate (4-6) Last Admin: 03/09/22 09:04 Dose: 1 tab Pantoprazole Sodium (Pantoprazole 40 Mg Tab) 40 mg PO QDAC [facility] Last Admin: 03/09/22 08:00 Dose: 40 mg Pregabalin (Pregabalin 50 Mg Cap) 100 mg PO QDAY [facility] Last Admin: 03/09/22 09:00 Dose: 100 mg Trazodone HCl (Trazodone 50 Mg Tab) 50 mg PO HS [facility] Last Admin: 03/08/22 21:26 Dose: 50 mg Results - Results Labs/Vitals: Laboratory Last Values WBC 9.8 K/mm3 (4.5-11.0) 03/05/22 06:44 RBC 5.23 M/mm3 (3.65-5.03) H 03/05/22 06:44 Hgb 14.8 gm/dl (11.8-15.2) 03/05/22 06:44 Hct 45.1 % (35.5-45.6) 03/05/22 06:44 MCV 86 fl (84-94) 03/05/22 06:44 MCH 28 pg (28-32) 03/05/22 06:44 MCHC 33 % (32-34) 03/05/22 06:44 RDW 16.7 % (13.2-15.2) H 03/05/22 06:44 Plt Count 283 K/mm3 (140-440) 03/05/22 06:44 Lymph % (Auto) 32.8 % (13.4-35.0) 03/05/22 06:44 [place] % (Auto) 9.5 % (0.0-7.3) H 03/05/22 06:44 Eos % (Auto) 3.5 % (0.0-4.3) 03/05/22 06:44 Baso % (Auto) 0.7 % (0.0-1.8) 03/05/22 06:44 Lymph # (Auto) 3.2 K/mm3 (1.2-5.4) 03/05/22 06:44 [place] # (Auto) 0.9 K/mm3 (0.0-0.8) H 03/05/22 06:44 Eos # (Auto) 0.3 K/mm3 (0.0-0.4) 03/05/22 06:44 Baso # (Auto) 0.1 K/mm3 (0.0-0.1) 03/05/22 06:44 Seg Neutrophils % 53.5 % (40.0-70.0) 03/05/22 06:44 Seg Neutrophils # 5.3 K/mm3 (1.8-7.7) 03/05/22 06:44 Sodium 136 mmol/L (137-145) L 03/06/22 06:08 Potassium 4.2 mmol/L (3.6-5.0) 03/06/22 06:08 Chloride 100.1 mmol/L (98-107) 03/06/22 06:08 Carbon Dioxide 25 mmol/L (22-30) 03/06/22 06:08 Anion Gap 15 mmol/L 03/06/22 06:08 BUN 24 mg/dL (9-20) H 03/06/22 06:08 Creatinine 1.0 mg/dL (0.8-1.3) 03/06/22 06:08 Estimated GFR > 60 ml/min 03/06/22 06:08 BUN/Creatinine Ratio 24 % 03/06/22 06:08 Glucose 254 mg/dL (75-100) H 03/06/22 06:08 POC Glucose 194 mg/dL (70-105) H 03/09/22 06:07 Hemoglobin A1c 8.2 % (4-6) H 03/05/22 06:44 Calcium 9.2 mg/dL (8.4-10.2) 03/06/22 06:08 Total Bilirubin 0.30 mg/dL (0.1-1.2) 03/06/22 06:08 AST 19 units/L (5-40) 03/06/22 06:08 ALT 36 units/L (7-56) 03/06/22 06:08 Alkaline Phosphatase 163 units/L (35-129) H 03/06/22 06:08 Total Protein 6.5 g/dL (6.3-8.2) 03/06/22 06:08 Albumin 4.1 g/dL (3.9-5) 03/06/22 06:08 Albumin/Globulin Ratio 1.7 % 03/06/22 06:08 Triglycerides 327 mg/dL (2-149) H 03/05/22 06:44 Cholesterol 156 mg/dL (50-199) 03/05/22 06:44 LDL Cholesterol Direct 74 mg/dL (50-130) 03/05/22 06:44 HDL Cholesterol 51 mg/dL (40-59) 03/05/22 06:44 Cholesterol/HDL Ratio 3.05 % 03/05/22 06:44 TSH 2.460 mlU/mL (0.270-4.200) 03/05/22 06:44 Last Vital Signs Temp 98.4 F 03/09/22 08:17 Pulse 89 03/09/22 09:02 Resp 20 03/09/22 08:17 BP 97/71 03/09/22 09:02 Pulse Ox 93 03/09/22 08:17
[2022-03-09] MEDS: traZODone 50 MG TAB PO SCH (21:19)
[2022-03-09] MEDS: CYCLOBENZAPRINE 10 MG TAB PO SCH (21:20)
[2022-03-10] MEDS: INSULIN LISPRO 100 UNIT/ML SUB-Q SCH ×2 (07:41→12:26)
[2022-03-10] MEDS: GLIMEPIRIDE 4 MG TAB PO SCH (08:05)
[2022-03-10] MEDS: PANTOPRAZOLE 40 MG TAB PO SCH (08:05)
[2022-03-10] MEDS: metFORMIN 500 MG TAB PO SCH (08:05)
[2022-03-10] MEDS: FUROSEMIDE 40 MG TAB PO SCH (09:12)
[2022-03-10] MEDS: PREGABALIN 50 MG CAP PO SCH (09:12)
[2022-03-10] MEDS: CLOPIDOGREL 75 MG TAB PO SCH (09:12)
[2022-03-10] MEDS: FLUoxetine 20 MG CAP PO SCH (09:12)
[2022-03-10] MEDS: DULoxetine 30 MG CAP PO SCH (09:12)
[2022-03-10] MEDS: oxyCODONE /ACETAMINOPHEN 5-325MG TAB PO PRN (09:13)
[2022-03-10] MEDS: NICOTINE 21 MG/24 HR PATCH TD SCH (09:14)
[2022-03-10] MEDS: carvediloL 6.25 MG TAB PO SCH (10:06)
--- NOTE | 2022-03-10 11:15 | Progress Note ---
Assessment and Plan - Patient Problems (1) Hypertension Current Visit: Yes Status: Acute Qualifiers: Hypertension type: primary hypertension Qualified Code(s): I10 - Essential (primary) hypertension Plan to address problem: Monitor blood pressure every shift, continue medical management. (2) Diabetes Current Visit: Yes Status: Acute Plan to address problem: Consistent carbohydrate diet, Accu-Chek, insulin protocol, hypoglycemia protocol (3) Obesity hypoventilation syndrome Current Visit: Yes Status: Acute Plan to address problem: Balanced diet, increase physical activity at discharge, outpatient pulmonary follow-up for sleep study. (4) Hyperlipidemia Current Visit: Yes Status: Acute Qualifiers: Hyperlipidemia type: mixed hyperlipidemia Qualified Code(s): E78.2 - Mixed hyperlipidemia Plan to address problem: Low-cholesterol diet, statin therapy as clinically indicated, supportive care. (5) Coronary artery disease Current Visit: Yes Status: Acute Plan to address problem: Antiplatelet therapy as clinically indicated, risk factor reduction, supportive care, statin therapy as clinically indicated, low-cholesterol diet. (6) Nicotine dependence Current Visit: Yes Status: Acute Qualifiers: Nicotine product type: cigarettes Substance use status: in withdrawal Qualified Code(s): F17.213 - Nicotine dependence, cigarettes, with withdrawal Plan to address problem: Smoke cessation counseling, supportive care, behavior change counseling, +15 minutes. (7) Advance care planning Current Visit: Yes Status: Acute Plan to address problem: Disease education conducted, care plan discussed, diagnoses discussed, prognosis discussed, patient is full code. Patient acknowledges understanding and agreement with care plan, +30 minutes. (8) Preventative health care Current Visit: Yes Status: Acute Plan to address problem: Patient counseled regarding weight loss, meal planning, increase physical activity discharge, decreasing overall health risk, smoking cessation, +30 min utes. History Interval history: 56 YO Male with HTN, DM, HLD, CAD, Obesity Hypoventilation Syndrome, Nicotine Dependence, MDD, Nicotine Dependence, GERD. Pt is admitted to [facility] for psychiatric stabilization. Consult placed by Dr. Mullen for medical management. Patient seen and evaluated in the recreation room. Patient denies pain. Patient remains comfortable. No reported Nursing events. . Hospitalist Physical - Constitutional Vitals: Temp Pulse Resp BP Pulse Ox 98.4 F 73 18 113/75 97 03/09/22 22:00 03/09/22 22:00 03/10/22 09:13 03/09/22 22:00 03/09/22 22:00 General appearance: Present: no acute distress, well-nourished, obese - EENT Eyes: Present: PERRL ENT: hearing intact - Neck Neck: Present: supple - Respiratory Respiratory effort: normal Respiratory: bilateral: diminished - Cardiovascular Rhythm: regular Heart Sounds: Present: S1 & S2 - Extremities Extremities: no ischemia Peripheral Pulses: within normal limits - Abdominal General gastrointestinal: soft, non-tender, non-distended - Integumentary Integumentary: Present: clear, dry - Psychiatric Psychiatric: cooperative - Neurologic Neurologic: CNII-XII intact Results - Labs CBC & Chem 7: 03/05/22 06:44 03/06/22 06:08 Labs: Laboratory Last Values WBC 9.8 K/mm3 (4.5-11.0) 03/05/22 06:44 RBC 5.23 M/mm3 (3.65-5.03) H 03/05/22 06:44 Hgb 14.8 gm/dl (11.8-15.2) 03/05/22 06:44 Hct 45.1 % (35.5-45.6) 03/05/22 06:44 MCV 86 fl (84-94) 03/05/22 06:44 MCH 28 pg (28-32) 03/05/22 06:44 MCHC 33 % (32-34) 03/05/22 06:44 RDW 16.7 % (13.2-15.2) H 03/05/22 06:44 Plt Count 283 K/mm3 (140-440) 03/05/22 06:44 Lymph % (Auto) 32.8 % (13.4-35.0) 03/05/22 06:44 [place] % (Auto) 9.5 % (0.0-7.3) H 03/05/22 06:44 Eos % (Auto) 3.5 % (0.0-4.3) 03/05/22 06:44 Baso % (Auto) 0.7 % (0.0-1.8) 03/05/22 06:44 Lymph # (Auto) 3.2 K/mm3 (1.2-5.4) 03/05/22 06:44 [place] # (Auto) 0.9 K/mm3 (0.0-0.8) H 03/05/22 06:44 Eos # (Auto) 0.3 K/mm3 (0.0-0.4) 03/05/22 06:44 Baso # (Auto) 0.1 K/mm3 (0.0-0.1) 03/05/22 06:44 Seg Neutrophils % 53.5 % (40.0-70.0) 03/05/22 06:44 Seg Neutrophils # 5.3 K/mm3 (1.8-7.7) 03/05/22 06:44 Sodium 136 mmol/L (137-145) L 03/06/22 06:08 Potassium 4.2 mmol/L (3.6-5.0) 03/06/22 06:08 Chloride 100.1 mmol/L (98-107) 03/06/22 06:08 Carbon Dioxide 25 mmol/L (22-30) 03/06/22 06:08 Anion Gap 15 mmol/L 03/06/22 06:08 BUN 24 mg/dL (9-20) H 03/06/22 06:08 Creatinine 1.0 mg/dL (0.8-1.3) 03/06/22 06:08 Estimated GFR > 60 ml/min 03/06/22 06:08 BUN/Creatinine Ratio 24 % 03/06/22 06:08 Glucose 254 mg/dL (75-100) H 03/06/22 06:08 POC Glucose 153 mg/dL (70-105) H 03/10/22 06:10 Hemoglobin A1c 8.2 % (4-6) H 03/05/22 06:44 Calcium 9.2 mg/dL (8.4-10.2) 03/06/22 06:08 Total Bilirubin 0.30 mg/dL (0.1-1.2) 03/06/22 06:08 AST 19 units/L (5-40) 03/06/22 06:08 ALT 36 units/L (7-56) 03/06/22 06:08 Alkaline Phosphatase 163 units/L (35-129) H 03/06/22 06:08 Total Protein 6.5 g/dL (6.3-8.2) 03/06/22 06:08 Albumin 4.1 g/dL (3.9-5) 03/06/22 06:08 Albumin/Globulin Ratio 1.7 % 03/06/22 06:08 Triglycerides 327 mg/dL (2-149) H 03/05/22 06:44 Cholesterol 156 mg/dL (50-199) 03/05/22 06:44 LDL Cholesterol Direct 74 mg/dL (50-130) 03/05/22 06:44 HDL Cholesterol 51 mg/dL (40-59) 03/05/22 06:44 Cholesterol/HDL Ratio 3.05 % 03/05/22 06:44 TSH 2.460 mlU/mL (0.270-4.200) 03/05/22 06:44 [place]/IV: Voiding Method Toilet Active Medications - Current Medications Current Medications: Generic Name Dose Route Start Last Admin Trade Name Freq PRN Reason Stop Dose Admin Acetaminophen 650 mg 03/06/22 16:27 03/06/22 16:38 Acetaminophen 325 Mg Tab PO 650 mg Q4H PRN Administration Pain, Mild (1-3) Atorvastatin Calcium 40 mg 03/05/22 22:00 03/09/22 21:19 Atorvastatin 40 Mg Tab PO 40 mg QHS MAULIK Administration Carvedilol 6.25 mg 03/05/22 10:00 03/10/22 10:06 Carvedilol 6.25 Mg Tab PO Not Given BID MAULIK Clonazepam 0.5 mg 03/05/22 10:00 Clonazepam 0.5 Mg Tab PO BID PRN Anxiety Clopidogrel Bisulfate 75 mg 03/05/22 10:00 03/10/22 09:12 Clopidogrel 75 Mg Tab PO 75 mg QDAY MAULIK Administration Cyclobenzaprine HCl 10 mg 03/05/22 22:00 03/09/22 21:20 Cyclobenzaprine 10 Mg Tab PO 10 mg HS MAULIK Administration Dextrose 50 ml 03/06/22 10:00 Dextrose 50% In Water (25gm) 50 Ml Syringe IV Q30MIN PRN Hypoglycemia Protocol Duloxetine HCl 60 mg 03/05/22 10:00 03/10/22 09:12 Duloxetine 30 Mg Cap PO 60 mg QDAY MAULIK Administration Fluoxetine HCl 40 mg 03/05/22 10:00 03/10/22 09:12 Fluoxetine 20 Mg Cap PO 40 mg QDAY MAULIK Administration Furosemide 40 mg 03/05/22 10:00 03/09/22 09:00 Furosemide 40 Mg Tab PO 40 mg DAILY MAULIK Administration Glimepiride 4 mg 03/05/22 10:00 03/10/22 08:05 Glimepiride 4 Mg Tab PO 4 mg QAMDIAB MAULIK Administration Hydroxyzine Pamoate 25 mg 03/05/22 13:30 Hydroxyzine Pamoate 25 Mg Cap PO Q6H PRN Anxiety Insulin Human Lispro 0 unit 03/06/22 16:30 03/10/22 07:41 Insulin Lispro 100 Unit/Ml SUB-Q 2 unit ACHS MAULIK Administration Protocol Metformin HCl 1,000 mg 03/06/22 11:00 03/10/22 08:05 Metformin 500 Mg Tab PO 1,000 mg BIDDIAB [facility]IK Administration Nicotine 21 mg 03/05/22 10:00 03/10/22 09:14 Nicotine 21 Mg/24 Hr Patch TD 21 mg QDAY [facility]ULIK Administration Oxycodone/Acetaminophen 1 tab 03/06/22 17:29 03/10/22 09:13 Oxycodone /Acetaminophen 5-325mg Tab PO 1 tab Q6H PRN Administration Pain, Moderate (4-6) Pantoprazole Sodium 40 mg 03/05/22 11:00 03/10/22 08:05 Pantoprazole 40 Mg Tab PO 40 mg QDAC MAULIK Administration Pregabalin 100 mg 03/05/22 10:00 03/10/22 09:12 Pregabalin 50 Mg Cap PO 100 mg QDAY [facility]ULIK Administration Trazodone HCl 50 mg 03/05/22 22:00 03/09/22 21:19 Trazodone 50 Mg Tab PO 50 mg HS MAULIK Administration
--- NOTE | 2022-03-10 12:09 | Discharge Summary ---
Providers - Providers Date of Admission: 03/05/22 06:07 Date of discharge: 03/10/22 Attending physician: CRISTAL ROBERTS MD 03/05/22 05:11 Consult to Physician [CONS] Routine Comment: Consulting Provider: ASHLEY PERSAUD Physician Instructions: Ps manage existing problems Reason For Exam: New admission Primary care physician: GOVERNMENT INSTRUCTOR Hospitalization Reason for admission: SI Admitting Diagnosis: F33.9 - MAJOR DEPRESSIVE DISORDER, RECURRENT, UNSPECIFIED Condition: Stable Hospital course: The patient was provided inpatient psychiatric treatment with safe and supportive environment, group/individual therapy, psychiatric medication, medication adjustment, adverse effect monitor, medical evaluation, medical treatment, social service assessment, social support meeting, placement assessment and psycho-education. The patients mood, cognition, behavior, motivation, compliance to treatment and appreciation on family/social support are improved and stabilized. At the time of discharge, the patient had no suicidal ideas, no homicidal ideas, no aggressive thoughts, no endangering behavior and no debilitating adverse effects. The patient agreed on the treatment plan, understood the risk, benefit, alternative treatment, potential consequence of no treatment, and gave informed consent. Disposition: 01 HOME / SELF CARE / HOMELESS Time spent for discharge: 35 Allergies/Adverse Reactions: Allergies No Known Allergies Allergy (Unverified 03/04/22 17:57) Vital Signs: Last Vital Signs Temp 98.4 F 03/09/22 22:00 Pulse 73 03/09/22 22:00 Resp 18 03/10/22 09:13 BP 113/75 03/09/22 22:00 Pulse Ox 97 03/09/22 22:00 Last Lab: Laboratory Last Values WBC 9.8 K/mm3 (4.5-11.0) 03/05/22 06:44 RBC 5.23 M/mm3 (3.65-5.03) H 03/05/22 06:44 Hgb 14.8 gm/dl (11.8-15.2) 03/05/22 06:44 Hct 45.1 % (35.5-45.6) 03/05/22 06:44 MCV 86 fl (84-94) 03/05/22 06:44 MCH 28 pg (28-32) 03/05/22 06:44 MCHC 33 % (32-34) 03/05/22 06:44 RDW 16.7 % (13.2-15.2) H 03/05/22 06:44 Plt Count 283 K/mm3 (140-440) 03/05/22 06:44 Lymph % (Auto) 32.8 % (13.4-35.0) 03/05/22 06:44 [place] % (Auto) 9.5 % (0.0-7.3) H 03/05/22 06:44 Eos % (Auto) 3.5 % (0.0-4.3) 03/05/22 06:44 Baso % (Auto) 0.7 % (0.0-1.8) 03/05/22 06:44 Lymph # (Auto) 3.2 K/mm3 (1.2-5.4) 03/05/22 06:44 [place] # (Auto) 0.9 K/mm3 (0.0-0.8) H 03/05/22 06:44 Eos # (Auto) 0.3 K/mm3 (0.0-0.4) 03/05/22 06:44 Baso # (Auto) 0.1 K/mm3 (0.0-0.1) 03/05/22 06:44 Seg Neutrophils % 53.5 % (40.0-70.0) 03/05/22 06:44 Seg Neutrophils # 5.3 K/mm3 (1.8-7.7) 03/05/22 06:44 Sodium 136 mmol/L (137-145) L 03/06/22 06:08 Potassium 4.2 mmol/L (3.6-5.0) 03/06/22 06:08 Chloride 100.1 mmol/L (98-107) 03/06/22 06:08 Carbon Dioxide 25 mmol/L (22-30) 03/06/22 06:08 Anion Gap 15 mmol/L 03/06/22 06:08 BUN 24 mg/dL (9-20) H 03/06/22 06:08 Creatinine 1.0 mg/dL (0.8-1.3) 03/06/22 06:08 Estimated GFR > 60 ml/min 03/06/22 06:08 BUN/Creatinine Ratio 24 % 03/06/22 06:08 Glucose 254 mg/dL (75-100) H 03/06/22 06:08 POC Glucose 153 mg/dL (70-105) H 03/10/22 06:10 Hemoglobin A1c 8.2 % (4-6) H 03/05/22 06:44 Calcium 9.2 mg/dL (8.4-10.2) 03/06/22 06:08 Total Bilirubin 0.30 mg/dL (0.1-1.2) 03/06/22 06:08 AST 19 units/L (5-40) 03/06/22 06:08 ALT 36 units/L (7-56) 03/06/22 06:08 Alkaline Phosphatase 163 units/L (35-129) H 03/06/22 06:08 Total Protein 6.5 g/dL (6.3-8.2) 03/06/22 06:08 Albumin 4.1 g/dL (3.9-5) 03/06/22 06:08 Albumin/Globulin Ratio 1.7 % 03/06/22 06:08 Triglycerides 327 mg/dL (2-149) H 03/05/22 06:44 Cholesterol 156 mg/dL (50-199) 03/05/22 06:44 LDL Cholesterol Direct 74 mg/dL (50-130) 03/05/22 06:44 HDL Cholesterol 51 mg/dL (40-59) 03/05/22 06:44 Cholesterol/HDL Ratio 3.05 % 03/05/22 06:44 TSH 2.460 mlU/mL (0.270-4.200) 03/05/22 06:44 Core Measure Documentation - Palliative Care Palliative Care/ Comfort Measures: Not Applicable - Core Measures Any of the following diagnoses?: none Exam - Constitutional Vitals: Temp Pulse Resp BP Pulse Ox 98.4 F 73 18 113/75 97 03/09/22 22:00 03/09/22 22:00 03/10/22 09:13 03/09/22 22:00 03/09/22 22:00 General appearance: Present: no acute distress - EENT Eyes: Present: PERRL, EOM intact ENT: hearing intact, clear oral mucosa - Neck Neck: Present: supple, normal ROM - Respiratory Respiratory effort: normal Plan Activity: advance as tolerated Weight Bearing Status: Weight Bear as Tolerated Care Plan Goals: Maintain good and stable mental health Plan of Treatment: The patient should be compliant with medications, not to use drugs and not to drink alcohol.The patient understands that if suicidal ideas, homicidal ideas, or any endangering thoughts/behavior arise, they should immediately seek for emergent assistance including but not limited to crisis hot line and emergency room. Follow up with outpatient Psychiatrist and PCP within 7 - 14 days of discharge. Assessment: MDD Follow up with: PRIMARY CARE,MD [Primary Care Provider] - 7 Days Prescriptions: DULoxetine [Cymbalta] 60 mg PO QDAY #60 capsule traZODone [Desyrel] 50 mg PO HS #30 tablet Nicotine [Habitrol] 21 mg TD QDAY #30 patch FLUoxetine [PROzac] 40 mg PO QDAY #60 capsule hydrOXYzine PAMOATE [Vistaril] 25 mg PO Q6H PRN #120 capsule PRN Reason: Anxiety
[2022-03-10 12:30] VITALS: BP 113/74
== END 2022-03-10 15:20 | disposition home or self-care (01) | DRG 885 ==
LOC: UNDOADMIN 15:43 → 3A 15:43 → 5A 03-05 06:07
PROVIDERS: ADMIT Psychiatry & Neurology Psychiatry; ATTEND Psychiatry & Neurology Psychiatry
DX: F33.9 Major depressive disorder, recurrent, unspecified (principal); I25.10 Atherosclerotic heart disease of native coronary artery without angina pectoris; J44.9 Chronic obstructive pulmonary disease, unspecified; E11.9 Type 2 diabetes mellitus without complications; I10 Essential (primary) hypertension; E78.5 Hyperlipidemia, unspecified; F41.9 Anxiety disorder, unspecified; E11.40 Type 2 diabetes mellitus with diabetic neuropathy, unspecified; E66.01 Morbid (severe) obesity due to excess calories; G89.29 Other chronic pain; M54.9 Dorsalgia, unspecified; Z95.1 Presence of aortocoronary bypass graft; Z68.43 Body mass index [BMI] 50.0-59.9, adult
CPT/HCPCS: 36415; 80053; 80061; 82962; 83036; 84443; 85025; G0378; Q9967; J1815